=== PATIENT | male | born 1970 | race Caucasian/White ===

== ENCOUNTER 2016-06-21 03:59 | Emergency (ER) | payer MEDICAID ==
[~2016-06-21] VITALS: Ht 180.3 cm; Wt 74.8 kg
[2016-06-21] MEDS ORDERED: SODIUM CHLORIDE 0.9% 1,000 ML IVB ONE (06:38)
[2016-06-21] MEDS ORDERED: METOCLOPRAMIDE HCL 5MG/ml INJ 2ml VIAL IV ONE (06:45)
[2016-06-21] MEDS ORDERED: KETOROLAC TROMETH 30 MG/ML 1ML VIAL IV ONE (06:45)
[2016-06-21 07:05] LABS: Hematocrit 48.5 % (41.0-53.0); Hemoglobin 16.1 g/dL (13.5-17.5); Mean Corpuscular Hemoglobin 28.8 pg (28.0-32.0); Mean Corpuscular Hgb Conc. 33.3 g/dL (32.0-36.0); Mean Corpuscular Volume 86.7 fL (80.0-100.0); Mean Platelet Volume 7.3 fL (7.4-10.4); Platelet Count (auto) 412 10^3/uL (140-450); Red Cell Distribution Width 13.9 % (11.6-16.0); White Blood Cell 20.1 10^3/uL (4.4-10.8)
[2016-06-21 07:10] LABS: Metamyelocytes % 0; Myelocytes % 0; Promyelocytes % 0; Reactive Lymphocytes 0
[2016-06-21 07:34] LABS: Albumin 4.8 g/dL (3.4-5.0); BUN/Creatinine Ratio 18.8; Bilirubin, Total 0.7 mg/dL (0.2-1.0); Calcium 9.8 mg/dL (8.5-10.1); Magnesium 2.7 mg/dL (1.6-2.6); Potassium 3.7 mmol/L (3.5-5.1); Total Protein 8.2 g/dL (6.4-8.2)
[2016-06-21 08:17] VITALS: BP 123/78
[2016-06-21 09:27] LABS: Platelet Estimate Adequate
[2016-06-21 09:28] LABS: RBC Morphology Normal
[2016-06-21 10:49] LABS: Urine Bilirubin Negative (Negative); Urine Blood Negative /uL (Negative); Urine Color Yellow (Yellow); Urine Glucose Normal (Normal); Urine Ketone TRACE (Negative); Urine Mucus FEW (None Seen); Urine Nitrite Negative (Negative); Urine RBC 6 /hpf (0 - 3); Urine Urobilinogen Normal (Negative); Urine pH 6.5 (5.0-8.0)
== END 2016-06-21 11:27 | disposition home or self-care (01) ==
LOC: ER 04:00
DX: N20.1 Calculus of ureter (principal); Z87.442 Personal history of urinary calculi; F17.210 Nicotine dependence, cigarettes, uncomplicated; F12.10 Cannabis abuse, uncomplicated; F15.10 Other stimulant abuse, uncomplicated
CPT/HCPCS: 36415; 74176; 80053; 81001; 83690; 83735; 85007; 85027; 96361; 96374; 96375; 99285; J1885; J2765; J7030

== ENCOUNTER 2020-03-20 00:31 | Emergency (ER) | payer MEDICAID ==
[~2020-03-20] VITALS: Ht 180.3 cm; Wt 72.6 kg
[2020-03-20] MEDS ORDERED: IOHEXOL 300 MG/ML 100ML BOTTLE IJ ONE (00:54)
[2020-03-20] MEDS ORDERED: ONDANSETRON HCL 4 MG/2 ML VIAL ONE (01:03)
[2020-03-20] MEDS ORDERED: SODIUM CHLORIDE 0.9% 1,000 ML IV ONE (01:30)
[2020-03-20] MEDS ORDERED: ONDANSETRON HCL 4 MG/2 ML VIAL IV ONE ×2 (01:30→04:15)
[2020-03-20 01:31] LABS: Basophils # (auto) 0.1 10 ^3/uL (0-0.2); Basophils % (auto) 0.5 % (0.0-2.0); Eosinophils # (auto) 0.2 10 ^3/uL (0-0.8); Eosinophils % (auto) 1.4 % (0.0-7.0); Hematocrit 45.5 % (41.0-53.0); Hemoglobin 15.6 g/dL (13.5-17.5); Lymphocytes # (auto) 3.8 10 ^3/uL (0.4-5.4); Lymphocytes % (auto) 27.5 % (10.0-50.0); Mean Corpuscular Hemoglobin 29.5 pg (28.0-32.0); Mean Corpuscular Hgb Conc. 34.4 g/dL (32.0-36.0); Mean Corpuscular Volume 85.9 fL (80.0-100.0); Monocytes % (auto) 7.1 % (0.0-12.0); Neutrophils # (auto) 8.8 10 ^3/uL (1.6-8.6); Neutrophils % (auto) 63.5 % (37.0-80.0); Nucleated Red Blood Cells % 0.1 %; Platelet Count (auto) 418 10^3/uL (140-450); Red Cell Distribution Width 14.1 % (11.8-14.3); White Blood Cell 13.8 10^3/uL (4.4-10.8)
[2020-03-20 01:49] LABS: Albumin 4.2 g/dL (3.4-5.0); BUN/Creatinine Ratio 14.9; Calcium 9.6 mg/dL (8.5-10.1); Potassium 3.6 mmol/L (3.5-5.1)
[2020-03-20 01:52] LABS: Bilirubin, Total 0.3 mg/dL (0.2-1.0); Total Protein 7.5 g/dL (6.4-8.2)
[2020-03-20] MEDS ORDERED: MORPHINE SULFATE 4 MG/ML SYR/VIAL IV ONE (04:15)
[2020-03-20 06:59] VITALS: BP 109/74
== END 2020-03-20 09:50 | disposition home or self-care (01) ==
LOC: ER 00:31
DX: N20.1 Calculus of ureter (principal); F17.210 Nicotine dependence, cigarettes, uncomplicated
CPT/HCPCS: 36415; 74177; 80053; 83690; 85025; 93005; 96361; 96374; 96375; 96376; 99285; J2270; J2405; Q9967

== ENCOUNTER 2020-06-09 19:34 | Inpatient (IN) | payer MEDICAID ==
[~2020-06-09] VITALS: Ht 177.8 cm; Wt 72.9 kg
[2020-06-09] MEDS ORDERED: CLINDAMYCIN 900MG IV 50 ML IV ONE (20:00)
[2020-06-09 20:22] LABS: Basophils # (auto) 0.1 10 ^3/uL (0-0.2); Basophils % (auto) 0.4 % (0.0-2.0); Eosinophils # (auto) 0.1 10 ^3/uL (0-0.8); Eosinophils % (auto) 0.5 % (0.0-7.0); Hematocrit 42.8 % (41.0-53.0); Hemoglobin 14.4 g/dL (13.5-17.5); Lymphocytes # (auto) 1.6 10 ^3/uL (0.4-5.4); Lymphocytes % (auto) 7.9 % (10.0-50.0); Mean Corpuscular Hemoglobin 28.9 pg (28.0-32.0); Mean Corpuscular Hgb Conc. 33.6 g/dL (32.0-36.0); Mean Corpuscular Volume 86.1 fL (80.0-100.0); Monocytes # (auto) 1.4 10 ^3/uL (0-1.3); Monocytes % (auto) 6.6 % (0.0-12.0); Neutrophils # (auto) 17.5 10 ^3/uL (1.6-8.6); Neutrophils % (auto) 84.6 % (37.0-80.0); Red Blood Cells 4.98 10^6/uL (4.5-5.90); Red Cell Distribution Width 14.2 % (11.8-14.3); White Blood Cell 20.7 10^3/uL (4.4-10.8)
[2020-06-09] MEDS ORDERED: SODIUM CHLORIDE 0.9% 1,000 ML IV ONE (22:15)
[2020-06-09] MEDS ORDERED: ACETAMINOPHEN 325 MG TAB PO ONE (22:15)
[2020-06-09] MEDS ORDERED: VANCOMYCIN 1GM/250ML 250 ML IV ONE (22:45)
[2020-06-09 23:19] LABS: Albumin 3.7 g/dL (3.4-5.0); BUN/Creatinine Ratio 10.6; Calcium 8.8 mg/dL (8.5-10.1); Potassium 3.7 mmol/L (3.5-5.1)
[2020-06-09 23:21] LABS: Bilirubin, Total 0.7 mg/dL (0.2-1.0); Total Protein 7.4 g/dL (6.4-8.2)
[2020-06-10] VITALS (7 sets, daily range): BP systolic 141–162; BP diastolic 85–101
[2020-06-10] MEDS ORDERED: TEMAZEPAM 15 MG CAP PO PRN (01:00)
[2020-06-10] MEDS ORDERED: VANCOMYCIN PER PHARMACY 0 MG IV SCH (01:00)
[2020-06-10] MEDS ORDERED: ONDANSETRON HCL 4 MG/2 ML VIAL IV PRN (01:00)
[2020-06-10] MEDS ORDERED: cefTRIAXone 1GM/50ML D5W 50 ML IV ONE (01:00)
[2020-06-10] MEDS ORDERED: ACETAMINOPHEN 325 MG TAB PO PRN (01:00)
[2020-06-10] MEDS ORDERED: SODIUM CHLORIDE 0.9% 1,000 ML IV SCH (01:00)
[2020-06-10] MEDS: HYDROcodone-ACET 5/325MG TAB PO PRN ×3 (01:44→20:48)
[2020-06-10] MEDS: FAMOTIDINE 20 MG TAB PO SCH ×2 (09:20→20:47)
[2020-06-10] MEDS: cefTRIAXone 1GM/50ML D5W 50 ML IV SCH (09:21)
[2020-06-10] MEDS: VANCOMYCIN 750mg/250ml 250 ML IV SCH ×2 (10:20→16:48)
[2020-06-10] MEDS ORDERED: SODIUM CHLORIDE 0.9% 1,000 ML IV ONE (12:15)
[2020-06-10] MEDS: HYDROmorphone HCL 2 MG/ML VL IV PRN ×2 (13:05→18:55)
[2020-06-10] MEDS: SODIUM CHLORIDE 0.9% 1,000 ML IV SCH ×2 (15:24→18:22)
[2020-06-11] MEDS: HYDROmorphone HCL 2 MG/ML VL IV PRN ×3 (01:14→21:48)
[2020-06-11] MEDS: SODIUM CHLORIDE 0.9% 1,000 ML IV SCH ×4 (02:24→21:35)
[2020-06-11] MEDS: VANCOMYCIN 750mg/250ml 250 ML IV SCH ×3 (02:25→19:01)
[2020-06-11 05:00] VITALS: BP 125/72
[2020-06-11 07:59] LABS: Basophils # (auto) 0 10 ^3/uL (0-0.2); Basophils % (auto) 0.2 % (0.0-2.0); Eosinophils # (auto) 0.2 10 ^3/uL (0-0.8); Eosinophils % (auto) 1.1 % (0.0-7.0); Hematocrit 39.5 % (41.0-53.0); Hemoglobin 13.8 g/dL (13.5-17.5); Lymphocytes # (auto) 2.2 10 ^3/uL (0.4-5.4); Lymphocytes % (auto) 10.3 % (10.0-50.0); Mean Corpuscular Hemoglobin 29.9 pg (28.0-32.0); Mean Corpuscular Hgb Conc. 34.9 g/dL (32.0-36.0); Mean Corpuscular Volume 85.9 fL (80.0-100.0); Monocytes # (auto) 1.6 10 ^3/uL (0-1.3); Monocytes % (auto) 7.5 % (0.0-12.0); Neutrophils # (auto) 17.2 10 ^3/uL (1.6-8.6); Neutrophils % (auto) 80.9 % (37.0-80.0); White Blood Cell 21.2 10^3/uL (4.4-10.8)
[2020-06-11 08:00] LABS: Potassium 3.7 mmol/L (3.5-5.1)
[2020-06-11 08:06] LABS: Albumin 3.2 g/dL (3.4-5.0); BUN/Creatinine Ratio 9.8; Bilirubin, Total 0.5 mg/dL (0.2-1.0); Calcium 8.7 mg/dL (8.5-10.1); Total Protein 6.7 g/dL (6.4-8.2)
[2020-06-11] MEDS: cefTRIAXone 1GM/50ML D5W 50 ML IV SCH (08:42)
[2020-06-11] MEDS: HYDROcodone-ACET 5/325MG TAB PO PRN (08:42)
[2020-06-11 09:00] VITALS: BP 130/70
[2020-06-11 13:00] VITALS: BP 107/54
[2020-06-11] MEDS: FAMOTIDINE 20 MG TAB PO SCH ×2 (14:46→21:49)
[2020-06-11] MEDS: CLINDAMYCIN 300 MG IV SCH ×3 (14:47→21:48)
[2020-06-11 16:50] VITALS: BP 125/87
[2020-06-11 21:45] VITALS: BP 157/84
[2020-06-12] VITALS (7 sets, daily range): BP systolic 129–143; BP diastolic 76–85
[2020-06-12] MEDS: VANCOMYCIN 750mg/250ml 250 ML IV SCH ×3 (02:02→18:21)
[2020-06-12] MEDS: SODIUM CHLORIDE 0.9% 1,000 ML IV SCH ×3 (04:11→16:01)
[2020-06-12] MEDS: CLINDAMYCIN 300 MG IV SCH ×3 (05:42→22:00)
[2020-06-12 06:19] LABS: Basophils # (auto) 0 10 ^3/uL (0-0.2); Basophils % (auto) 0.1 % (0.0-2.0); Eosinophils # (auto) 0.2 10 ^3/uL (0-0.8); Eosinophils % (auto) 1.4 % (0.0-7.0); Hematocrit 40.8 % (41.0-53.0); Hemoglobin 13.8 g/dL (13.5-17.5); Lymphocytes # (auto) 1.8 10 ^3/uL (0.4-5.4); Lymphocytes % (auto) 11.2 % (10.0-50.0); Mean Corpuscular Hemoglobin 29.1 pg (28.0-32.0); Mean Corpuscular Hgb Conc. 33.7 g/dL (32.0-36.0); Mean Corpuscular Volume 86.1 fL (80.0-100.0); Monocytes % (auto) 5.9 % (0.0-12.0); Neutrophils # (auto) 13.4 10 ^3/uL (1.6-8.6); Neutrophils % (auto) 81.4 % (37.0-80.0); Red Blood Cells 4.74 10^6/uL (4.5-5.90); White Blood Cell 16.4 10^3/uL (4.4-10.8)
[2020-06-12] MEDS: cefTRIAXone 1GM/50ML D5W 50 ML IV SCH (09:08)
[2020-06-12] MEDS: FAMOTIDINE 20 MG TAB PO SCH ×2 (12:29→22:00)
[2020-06-12] MEDS: HYDROmorphone HCL 2 MG/ML VL IV PRN ×2 (16:01→23:56)
[2020-06-13] MEDS: SODIUM CHLORIDE 0.9% 1,000 ML IV SCH ×4 (00:15→20:46)
[2020-06-13] MEDS: VANCOMYCIN 750mg/250ml 250 ML IV SCH ×2 (01:38→10:45)
[2020-06-13 04:59] VITALS: BP 134/77
[2020-06-13] MEDS: CLINDAMYCIN 300 MG IV SCH ×3 (05:49→21:53)
[2020-06-13] MEDS: HYDROmorphone HCL 2 MG/ML VL IV PRN ×3 (06:02→21:58)
[2020-06-13 09:00] VITALS: BP 125/89
[2020-06-13] MEDS: FAMOTIDINE 20 MG TAB PO SCH ×2 (10:45→21:53)
[2020-06-13] MEDS: cefTRIAXone 1GM/50ML D5W 50 ML IV SCH (12:00)
[2020-06-13 13:24] VITALS: BP 149/83
[2020-06-13] MEDS: LINEZOLID 600MG/300ML 300 ML IV SCH (15:16)
[2020-06-13 16:54] VITALS: BP 138/80
[2020-06-13 21:04] VITALS: BP 128/70
[2020-06-14] MEDS: SODIUM CHLORIDE 0.9% 1,000 ML IV SCH ×3 (02:59→16:57)
[2020-06-14] MEDS: LINEZOLID 600MG/300ML 300 ML IV SCH ×2 (02:59→16:57)
[2020-06-14 05:12] VITALS: BP 134/84
[2020-06-14] MEDS: CLINDAMYCIN 300 MG IV SCH ×3 (05:15→21:46)
[2020-06-14] MEDS: HYDROmorphone HCL 2 MG/ML VL IV PRN ×3 (05:15→18:53)
[2020-06-14 06:08] LABS: Basophils # (auto) 0.1 10 ^3/uL (0-0.2); Basophils % (auto) 0.5 % (0.0-2.0); Eosinophils # (auto) 0.3 10 ^3/uL (0-0.8); Eosinophils % (auto) 3.2 % (0.0-7.0); Hematocrit 41.9 % (41.0-53.0); Hemoglobin 14.2 g/dL (13.5-17.5); Lymphocytes # (auto) 1.7 10 ^3/uL (0.4-5.4); Lymphocytes % (auto) 15.8 % (10.0-50.0); Mean Corpuscular Hgb Conc. 33.9 g/dL (32.0-36.0); Mean Corpuscular Volume 85.3 fL (80.0-100.0); Monocytes # (auto) 0.8 10 ^3/uL (0-1.3); Monocytes % (auto) 7.1 % (0.0-12.0); Neutrophils # (auto) 8.1 10 ^3/uL (1.6-8.6); Neutrophils % (auto) 73.4 % (37.0-80.0); Nucleated Red Blood Cells % 0.1 %; Red Blood Cells 4.91 10^6/uL (4.5-5.90); Red Cell Distribution Width 13.8 % (11.8-14.3)
[2020-06-14 06:26] LABS: Potassium 3.8 mmol/L (3.5-5.1)
[2020-06-14 06:33] LABS: Albumin 2.9 g/dL (3.4-5.0); BUN/Creatinine Ratio 16.5; Bilirubin, Total 0.1 mg/dL (0.2-1.0); Calcium 8.6 mg/dL (8.5-10.1); Total Protein 6.4 g/dL (6.4-8.2)
[2020-06-14 09:00] VITALS: BP 137/85
[2020-06-14] MEDS ORDERED: IOHEXOL 350 MG/ML 100ML IJ ONE (09:32)
[2020-06-14] MEDS: FAMOTIDINE 20 MG TAB PO SCH ×2 (11:24→21:46)
[2020-06-14 13:00] VITALS: BP 141/81
[2020-06-14 16:28] VITALS: BP 132/74
[2020-06-14] MEDS: HYDROcodone-ACET 5/325MG TAB PO PRN (21:21)
[2020-06-14 21:48] VITALS: BP 132/77
[2020-06-15] MEDS: SODIUM CHLORIDE 0.9% 1,000 ML IV SCH ×3 (01:12→12:15)
[2020-06-15] MEDS: LINEZOLID 600MG/300ML 300 ML IV SCH (02:24)
[2020-06-15] MEDS: HYDROmorphone HCL 2 MG/ML VL IV PRN (02:25)
[2020-06-15 05:00] VITALS: BP 123/72
[2020-06-15] MEDS: CLINDAMYCIN 300 MG IV SCH (05:35)
[2020-06-15 08:00] VITALS: BP 139/79
[2020-06-15 09:07] VITALS: BP 139/79
[2020-06-15] MEDS: FAMOTIDINE 20 MG TAB PO SCH (09:55)
[2020-06-15] MEDS ORDERED: DOXYCYCLINE 100 MG TAB/CAP PO SCH (10:00)
[2020-06-15] MEDS: HYDROcodone-ACET 5/325MG TAB PO PRN (12:28)
[2020-06-15 12:30] VITALS: BP 133/76
[2020-06-15 14:02] VITALS: BP 133/76
== END 2020-06-15 15:33 | disposition home or self-care (01) | DRG 720 ==
LOC: ER 19:35 → OVERFLOW 06-10 00:52 → CENTRAL 06-10 02:07
PROVIDERS: ADMIT Nurse Practitioner; ATTEND Family Medicine
DX: A41.9 Sepsis, unspecified organism (principal); E86.0 Dehydration; L03.211 Cellulitis of face; F12.10 Cannabis abuse, uncomplicated; F15.10 Other stimulant abuse, uncomplicated; F17.210 Nicotine dependence, cigarettes, uncomplicated; Z87.442 Personal history of urinary calculi; K02.9 Dental caries, unspecified; Z82.49 Family history of ischemic heart disease and other diseases of the circulatory system; Z82.3 Family history of stroke; Z71.6 Tobacco abuse counseling; Z20.822 Contact with and (suspected) exposure to COVID-19; B95.62 Methicillin resistant Staphylococcus aureus infection as the cause of diseases classified elsewhere; Z71.51 Drug abuse counseling and surveillance of drug abuser; R22.1 Localized swelling, mass and lump, neck
CPT/HCPCS: 36415; 70450; 70486; 70487; 70490; 80053; 80202; 83605; 85025; 87040; 87077; 87186; 87205; 87426; 96361; 96365; G0378; J0696; J3490

== ENCOUNTER 2021-06-26 17:30 | Inpatient (IN) | payer MEDICAID ==
[~2021-06-26] VITALS: Ht 180.3 cm; Wt 91.9 kg
[2021-06-26] MEDS ORDERED: IPRATROPIUM BROM 0.5 MG/2.5ML INH SOL NEB ONE (18:00)
[2021-06-26] MEDS ORDERED: ALBUTEROL SULF 2.5 MG/0.5ML(0.5%) NEB SOLN NEB ONE (18:00)
[2021-06-26] MEDS ORDERED: methylPREDNISolone SOD SUCC 125 MG/2 ML VL IV ONE (18:30)
[2021-06-26] MEDS ORDERED: methylPREDNISolone SOD SUCC 125 MG/2 ML VL ONE (18:30)
[2021-06-26] MEDS ORDERED: MAGNESIUM SULFATE 1GM/100ML 100 ML IV ONE (18:34)
[2021-06-26] MEDS ORDERED: LACTATED RINGER'S 1,000 ML IV ONE (19:00)
[2021-06-26 19:04] LABS: Hematocrit 48.1 % (41.0-53.0); Hemoglobin 16.1 g/dL (13.5-17.5); Mean Corpuscular Hemoglobin 29.1 pg (28.0-32.0); Mean Corpuscular Hgb Conc. 33.5 g/dL (32.0-36.0); Red Blood Cells 5.52 10^6/uL (4.5-5.90); Red Cell Distribution Width 14.4 % (11.8-14.3); White Blood Cell 21.8 10^3/uL (4.4-10.8)
[2021-06-26 19:08] LABS: Basophils % (manual) 0 (0.0-2.0); Blast Cells 0; Eosinophils % (manual) 0 (0-7); Metamyelocytes % 0; Myelocytes % 0; Promyelocytes % 0; Reactive Lymphocytes 0
[2021-06-26 19:26] LABS: Albumin 4.4 g/dL (3.4-5.0); BUN/Creatinine Ratio 9.2; Calcium 8.7 mg/dL (8.5-10.1); Magnesium 3.5 mg/dL (1.6-2.6); Potassium 4.5 mmol/L (3.5-5.1)
[2021-06-26 19:29] LABS: Bilirubin, Total 0.5 mg/dL (0.2-1.0)
[2021-06-26] MEDS: MAGNESIUM SULFATE 1GM/100ML 100 ML IV SCH ×2 (19:30→19:42)
[2021-06-26 19:35] VITALS: BP 123/85
[2021-06-26] MEDS ORDERED: ASPirin 81 mg TAB PO ONE (19:45)
[2021-06-26] MEDS ORDERED: NITROGLYCERIN 0.4 MG SL TAB SL ONE ×2 (19:45→20:45)
[2021-06-26 19:51] LABS: INR 1.05 (0.9-1.15); Partial Thromboplastin Time 27.7 sec (23.6-33.0)
[2021-06-26] MEDS ORDERED: cefTRIAXone 1GM/50ML D5W 50 ML IV ONE (21:15)
[2021-06-26] MEDS ORDERED: AZITHROMYCIN 500MG/ 250ML 250 ML IV ONE (21:15)
[2021-06-26] MEDS ORDERED: SODIUM CHLORIDE 0.9% 1,000 ML IV ONE (21:15)
[2021-06-26 21:47] LABS: Band Neutrophils % (manual) 9; Lymphocytes % (manual) 11 (10.0-50.0); Monocytes % (manual) 9 (0-12)
[2021-06-26] MEDS ORDERED: MORPHINE SULFATE INJ 2 MG/ml SYRG IV ONE (23:30)
[2021-06-27] VITALS (18 sets, daily range): BP systolic 98–145; BP diastolic 55–92
[2021-06-27] MEDS ORDERED: MORPHINE SULFATE INJ 2 MG/ml SYRG IV ONE (01:00)
[2021-06-27 02:09] LABS: Lactic Acid w/Reflex 4.2 mmol/L (0.4-2.0)
[2021-06-27 02:12] LABS: Lactic Acid w/Reflex 3.6 mmol/L (0.4-2.0)
[2021-06-27] MEDS ORDERED: ONDANSETRON HCL 4 MG/2 ML VIAL IV PRN (02:15)
[2021-06-27] MEDS ORDERED: ACETAMINOPHEN 325 MG TAB PO PRN (02:15)
[2021-06-27] MEDS ORDERED: ENOXAPARIN SOD 100 MG/1 ML SYRINGE SC ONE (02:15)
[2021-06-27] MEDS ORDERED: NITROGLYCERIN 0.4 MG SL TAB SL PRN (02:15)
[2021-06-27 05:21] LABS: BUN/Creatinine Ratio 10.8; Calcium 8.8 mg/dL (8.5-10.1); Potassium 4.5 mmol/L (3.5-5.1)
[2021-06-27] MEDS ORDERED: SODIUM CHLORIDE 0.9% 500 ML IV ONE (07:00)
[2021-06-27] MEDS: ENOXAPARIN SOD 30 MG/0.3 ML SYRINGE SC SCH (09:34)
[2021-06-27] MEDS: PANTOPRAZOLE 40 MG TAB PO SCH (09:35)
[2021-06-27] MEDS: HYDROcodone-ACET 5/325MG TAB PO PRN ×2 (09:44→21:42)
[2021-06-27] MEDS ORDERED: methylPREDNISolone SOD SUCC 125 MG/2 ML VL IV SCH (10:00)
[2021-06-27] MEDS: MORPHINE SULFATE INJ 2 MG/ml SYRG IV PRN ×2 (11:57→15:56)
[2021-06-27] MEDS ORDERED: IPRATROPIUM BROM 0.5 MG/2.5ML INH SOL NEB PRN (16:00)
[2021-06-27 16:02] LABS: Amphetamine Screen, Urine POSITIVE (NEGATIVE); Barbiturate Scree,Urine NEGATIVE (NEGATIVE); Benzodiazephine Screen, Urine NEGATIVE (NEGATIVE); Cannabinoid Screen, Urine NEGATIVE (NEGATIVE); Cocaine Screen, Urine NEGATIVE (NEGATIVE)
[2021-06-27 16:10] LABS: Opiate Scree,Urine NEGATIVE (NEGATIVE); Phencyclidine Screen, Urine NEGATIVE (NEGATIVE)
[2021-06-27] MEDS: SODIUM CHLORIDE 0.9% 1,000 ML IV SCH (16:19)
[2021-06-27 16:35] LABS: Urine Bacteria NONE SEEN /hpf (None Seen); Urine Blood 1+ /uL (Negative); Urine Budding Yeast OCCASIONAL /hpf (None Seen); Urine Hyaline Cast MOD /lpf (0 - 2); Urine Mucus FEW (None Seen); Urine Specific Gravity 1.027 (1.001-1.035); Urine WBC 3 /hpf (0 - 3)
[2021-06-27] MEDS: IPRATROPIUM BROM 0.5 MG/2.5ML INH SOL NEB SCH ×2 (18:34→22:12)
[2021-06-27] MEDS: LEVALBUTEROL HCL 1.25 MG/3 ML NEB NEB SCH ×2 (18:34→22:12)
[2021-06-27] MEDS: methylPREDNISolone SOD SUCC 125 MG/2 ML VL IV SCH (21:29)
[2021-06-27] MEDS: cefTRIAXone 1GM/50ML D5W 50 ML IV SCH (21:29)
[2021-06-27] MEDS ORDERED: HYDROcodone-ACET 5/325MG TAB PO ONE (22:45)
[2021-06-27] MEDS: AZITHROMYCIN 500MG/ 250ML 250 ML IV SCH (23:23)
[2021-06-28] VITALS (46 sets, daily range): BP systolic 78–167; BP diastolic 41–96
[2021-06-28] MEDS: IPRATROPIUM BROM 0.5 MG/2.5ML INH SOL NEB SCH ×6 (02:10→22:26)
[2021-06-28] MEDS: LEVALBUTEROL HCL 1.25 MG/3 ML NEB NEB SCH ×6 (02:10→22:26)
[2021-06-28 05:29] LABS: Basophils # (auto) 0 10 ^3/uL (0-0.2); Basophils % (auto) 0.2 % (0.0-2.0); Eosinophils # (auto) 0 10 ^3/uL (0-0.8); Hemoglobin 12.7 g/dL (13.5-17.5); Lymphocytes # (auto) 1.3 10 ^3/uL (0.4-5.4); Lymphocytes % (auto) 6.1 % (10.0-50.0); Mean Corpuscular Hemoglobin 29.3 pg (28.0-32.0); Mean Corpuscular Hgb Conc. 34.4 g/dL (32.0-36.0); Mean Corpuscular Volume 85.1 fL (80.0-100.0); Monocytes # (auto) 1.2 10 ^3/uL (0-1.3); Monocytes % (auto) 5.7 % (0.0-12.0); Red Blood Cells 4.35 10^6/uL (4.5-5.90); Red Cell Distribution Width 14.5 % (11.8-14.3); White Blood Cell 20.5 10^3/uL (4.4-10.8)
[2021-06-28 05:47] LABS: Potassium 4.8 mmol/L (3.5-5.1)
[2021-06-28 05:49] LABS: Lactic Acid w/Reflex 2.5 mmol/L (0.4-2.0)
[2021-06-28 05:55] LABS: Albumin 2.7 g/dL (3.4-5.0); BUN/Creatinine Ratio 45.2; Bilirubin, Total 0.4 mg/dL (0.2-1.0); Calcium 8.8 mg/dL (8.5-10.1); Magnesium 2.4 mg/dL (1.6-2.6)
[2021-06-28] MEDS: SODIUM CHLORIDE 0.9% 1,000 ML IV SCH (06:09)
[2021-06-28] MEDS: ENOXAPARIN SOD 30 MG/0.3 ML SYRINGE SC SCH (09:19)
[2021-06-28] MEDS: methylPREDNISolone SOD SUCC 125 MG/2 ML VL IV SCH ×2 (09:19→22:12)
[2021-06-28] MEDS: PANTOPRAZOLE 40 MG TAB PO SCH (09:19)
[2021-06-28] MEDS: HYDROcodone-ACET 5/325MG TAB PO PRN (10:35)
[2021-06-28] MEDS ORDERED: HYDROmorphone HCL 2 MG/ML VL/or syr IV ONE (11:30)
[2021-06-28] MEDS ORDERED: LORazepam 2MG/ML-1ML VIAL IV ONE (11:30)
[2021-06-28] MEDS ORDERED: CHOLECALCIFEROL (VITD3) 2,000 UNIT CAP/TAB PO ONE (14:45)
[2021-06-28] MEDS ORDERED: LORazepam 2MG/ML-1ML VIAL IV PRN (14:45)
[2021-06-28] MEDS ORDERED: HYDROmorphone HCL 2 MG/ML VL/or syr IV PRN (14:45)
[2021-06-28 15:16] LABS: Amylase 160 U/L (25-115); Lipase 31 U/L (73-393)
[2021-06-28] MEDS ORDERED: ETOMIDATE (2MG/ML) 20ML VIAL IV ONE (18:34)
[2021-06-28] MEDS ORDERED: SUCCINYLCHOLINE CHLORIDE 20 MG/ML 10ML VIAL IV ONE (18:35)
[2021-06-28] MEDS ORDERED: PROPOFOL 100 ML IV ONE (18:35)
[2021-06-28] MEDS ORDERED: fentaNYL Drip 2500mCg/250mlNS 250 ML IV ONE (19:01)
[2021-06-28] MEDS: fentaNYL Drip 2500mCg/250mlNS 250 ML IV SCH (19:51)
[2021-06-28] MEDS: NOREPINEPHRINE 8 MG/250ML KIT 250 ML IV SCH (19:52)
[2021-06-28] MEDS: PROPOFOL 100 ML IV SCH ×2 (19:52→22:28)
[2021-06-28] MEDS: MIDAZOLAM DRIP 50 mg/50mL 50 ML IV SCH (21:03)
[2021-06-28] MEDS: cefTRIAXone 1GM/50ML D5W 50 ML IV SCH (21:18)
[2021-06-28] MEDS: AZITHROMYCIN 500MG/ 250ML 250 ML IV SCH (22:13)
[2021-06-28] MEDS: PANTOPRAZOLE 40 MG/10 ML VIAL INJ IV SCH (22:13)
[2021-06-29] VITALS (105 sets, daily range): BP systolic 86–129; BP diastolic 48–87
[2021-06-29] MEDS: MIDAZOLAM DRIP 50 mg/50mL 50 ML IV SCH ×3 (00:11→22:05)
[2021-06-29] MEDS: PROPOFOL 100 ML IV SCH ×4 (00:47→17:31)
[2021-06-29] MEDS: NOREPINEPHRINE 8 MG/250ML KIT 250 ML IV SCH ×2 (02:20→17:34)
[2021-06-29] MEDS: IPRATROPIUM BROM 0.5 MG/2.5ML INH SOL NEB SCH ×4 (02:42→21:46)
[2021-06-29] MEDS: LEVALBUTEROL HCL 1.25 MG/3 ML NEB NEB SCH ×4 (02:42→21:46)
[2021-06-29] MEDS: SODIUM CHLORIDE 0.9% 1,000 ML IV SCH ×2 (04:05→13:59)
[2021-06-29 05:02] LABS: Hematocrit 33.4 % (41.0-53.0); Hemoglobin 11.3 g/dL (13.5-17.5); Mean Corpuscular Hemoglobin 29.2 pg (28.0-32.0); Mean Corpuscular Hgb Conc. 33.7 g/dL (32.0-36.0); Mean Corpuscular Volume 86.6 fL (80.0-100.0); Red Blood Cells 3.86 10^6/uL (4.5-5.90); Red Cell Distribution Width 14.7 % (11.8-14.3); White Blood Cell 26.4 10^3/uL (4.4-10.8)
[2021-06-29 05:21] LABS: BUN/Creatinine Ratio 26.2; Potassium 5.3 mmol/L (3.5-5.1)
[2021-06-29 05:23] LABS: Lactic Acid w/Reflex 4.6 mmol/L (0.4-2.0)
[2021-06-29 05:26] LABS: Basophils % (manual) 0 (0.0-2.0); Blast Cells 0; Eosinophils % (manual) 0 (0-7); Myelocytes % 0; Promyelocytes % 0; Reactive Lymphocytes 0
[2021-06-29] MEDS ORDERED: PROPOFOL 100 ML IV ONE (08:11)
[2021-06-29] MEDS: fentaNYL Drip 2500mCg/250mlNS 250 ML IV SCH ×2 (08:15→17:32)
[2021-06-29 08:57] LABS: Band Neutrophils % (manual) 17; Lymphocytes % (manual) 4 (10.0-50.0); Metamyelocytes % 1; Monocytes % (manual) 6 (0-12)
[2021-06-29 09:41] LABS: INR 1.06 (0.9-1.15); Partial Thromboplastin Time 44.1 sec (23.6-33.0)
[2021-06-29] MEDS: methylPREDNISolone SOD SUCC 125 MG/2 ML VL IV SCH ×2 (11:29→22:00)
[2021-06-29] MEDS: PANTOPRAZOLE 40 MG/10 ML VIAL INJ IV SCH ×2 (11:29→22:00)
[2021-06-29] MEDS ORDERED: FUROSEMIDE 20 MG/2 ML VIAL IV ONE (11:30)
[2021-06-29] MEDS ORDERED: SODIUM CHLORIDE 0.9% 1,000 ML IV ONE (11:30)
[2021-06-29] MEDS: ENOXAPARIN SOD 30 MG/0.3 ML SYRINGE SC SCH (11:34)
[2021-06-29] MEDS: CHOLECALCIFEROL (VITD3) 2,000 UNIT CAP/TAB PO SCH (11:34)
[2021-06-29] MEDS: SODIUM ZIRCONIUM CYCL 10 GM PAK GT SCH ×2 (16:30→22:00)
[2021-06-29] MEDS: PIPERACILLIN-TAZOB 2.25GM 50 ML IV SCH (17:35)
[2021-06-30] VITALS (92 sets, daily range): BP systolic 99–140; BP diastolic 53–81
[2021-06-30] MEDS: LEVALBUTEROL HCL 1.25 MG/3 ML NEB NEB SCH ×6 (02:49→22:51)
[2021-06-30] MEDS: IPRATROPIUM BROM 0.5 MG/2.5ML INH SOL NEB SCH ×6 (02:50→22:51)
[2021-06-30 05:21] LABS: Basophils # (auto) 0 10 ^3/uL (0-0.2); Basophils % (auto) 0.1 % (0.0-2.0); Eosinophils # (auto) 0 10 ^3/uL (0-0.8); Hematocrit 28.3 % (41.0-53.0); Hemoglobin 9.5 g/dL (13.5-17.5); Lymphocytes # (auto) 0.5 10 ^3/uL (0.4-5.4); Lymphocytes % (auto) 2.8 % (10.0-50.0); Mean Corpuscular Hemoglobin 29.2 pg (28.0-32.0); Mean Corpuscular Hgb Conc. 33.7 g/dL (32.0-36.0); Mean Corpuscular Volume 86.7 fL (80.0-100.0); Monocytes # (auto) 1.3 10 ^3/uL (0-1.3); Monocytes % (auto) 7.3 % (0.0-12.0); Neutrophils # (auto) 15.8 10 ^3/uL (1.6-8.6); Neutrophils % (auto) 89.8 % (37.0-80.0); Nucleated Red Blood Cells % 0.1 %; Red Blood Cells 3.26 10^6/uL (4.5-5.90); Red Cell Distribution Width 14.8 % (11.8-14.3); White Blood Cell 17.6 10^3/uL (4.4-10.8)
[2021-06-30 05:41] LABS: Lactic Acid w/Reflex 2.1 mmol/L (0.4-2.0)
[2021-06-30 05:52] LABS: Albumin 1.9 g/dL (3.4-5.0); BUN/Creatinine Ratio 24.6; Calcium 8.5 mg/dL (8.5-10.1); Magnesium 3.2 mg/dL (1.6-2.6); Potassium 4.5 mmol/L (3.5-5.1)
[2021-06-30 05:55] LABS: Bilirubin, Total 0.2 mg/dL (0.2-1.0); Total Protein 5.8 g/dL (6.4-8.2)
[2021-06-30] MEDS: PIPERACILLIN-TAZOB 2.25GM 50 ML IV SCH ×3 (06:00→13:30)
[2021-06-30] MEDS: SODIUM ZIRCONIUM CYCL 10 GM PAK GT SCH ×3 (06:00→21:59)
[2021-06-30] MEDS: fentaNYL Drip 2500mCg/250mlNS 250 ML IV SCH (09:05)
[2021-06-30] MEDS: CHOLECALCIFEROL (VITD3) 2,000 UNIT CAP/TAB PO SCH (09:32)
[2021-06-30] MEDS: methylPREDNISolone SOD SUCC 125 MG/2 ML VL IV SCH ×2 (09:32→21:59)
[2021-06-30] MEDS: PANTOPRAZOLE 40 MG/10 ML VIAL INJ IV SCH ×2 (09:33→21:59)
[2021-06-30] MEDS: ENOXAPARIN SOD 30 MG/0.3 ML SYRINGE SC SCH (09:33)
[2021-06-30] MEDS: MIDAZOLAM DRIP 50 mg/50mL 50 ML IV SCH ×2 (09:34→13:30)
[2021-06-30] MEDS: SODIUM CHLORIDE 0.9% 1,000 ML IV SCH (10:16)
[2021-06-30] MEDS: PIPERACILLIN-TAZOB 3.375GM 100 ML IV SCH ×2 (17:29→23:46)
[2021-06-30] MEDS: NOREPINEPHRINE 8 MG/250ML KIT 250 ML IV SCH (19:00)
[2021-07-01] VITALS (100 sets, daily range): BP systolic 108–160; BP diastolic 62–98
[2021-07-01] MEDS: MIDAZOLAM DRIP 50 mg/50mL 50 ML IV SCH ×2 (01:42→19:47)
[2021-07-01] MEDS: LEVALBUTEROL HCL 1.25 MG/3 ML NEB NEB SCH ×6 (02:12→22:16)
[2021-07-01] MEDS: IPRATROPIUM BROM 0.5 MG/2.5ML INH SOL NEB SCH ×6 (02:12→22:16)
[2021-07-01] MEDS: SODIUM CHLORIDE 0.9% 1,000 ML IV SCH ×2 (03:20→19:43)
[2021-07-01 05:19] LABS: Hematocrit 27.2 % (41.0-53.0); Hemoglobin 9.3 g/dL (13.5-17.5); Mean Corpuscular Hemoglobin 29.4 pg (28.0-32.0); Mean Corpuscular Volume 86.5 fL (80.0-100.0); Red Blood Cells 3.15 10^6/uL (4.5-5.90); Red Cell Distribution Width 15.2 % (11.8-14.3); White Blood Cell 16.7 10^3/uL (4.4-10.8)
[2021-07-01] MEDS: PIPERACILLIN-TAZOB 3.375GM 100 ML IV SCH ×4 (05:34→23:41)
[2021-07-01 05:37] LABS: Basophils % (manual) 0 (0.0-2.0); Blast Cells 0; Myelocytes % 0; Promyelocytes % 0; Reactive Lymphocytes 0
[2021-07-01 05:38] LABS: BUN/Creatinine Ratio 26.8; Calcium 8.6 mg/dL (8.5-10.1); Potassium 4.5 mmol/L (3.5-5.1)
[2021-07-01] MEDS: SODIUM ZIRCONIUM CYCL 10 GM PAK GT SCH (06:00)
[2021-07-01 06:46] LABS: Band Neutrophils % (manual) 2; Eosinophils % (manual) 1 (0-7); Lymphocytes % (manual) 4 (10.0-50.0); Metamyelocytes % 2; Monocytes % (manual) 9 (0-12)
[2021-07-01] MEDS: methylPREDNISolone SOD SUCC 125 MG/2 ML VL IV SCH ×2 (10:00→23:43)
[2021-07-01] MEDS: PANTOPRAZOLE 40 MG/10 ML VIAL INJ IV SCH ×2 (10:00→23:39)
[2021-07-01] MEDS: CHOLECALCIFEROL (VITD3) 2,000 UNIT CAP/TAB PO SCH (10:01)
[2021-07-01] MEDS: ENOXAPARIN SOD 30 MG/0.3 ML SYRINGE SC SCH (10:01)
[2021-07-01] MEDS: PROPOFOL 100 ML IV SCH ×2 (13:28→20:24)
[2021-07-01] MEDS: NOREPINEPHRINE 8 MG/250ML KIT 250 ML IV SCH (19:00)
[2021-07-01] MEDS: fentaNYL Drip 2500mCg/250mlNS 250 ML IV SCH (23:48)
[2021-07-02] VITALS (93 sets, daily range): BP systolic 105–152; BP diastolic 65–92
[2021-07-02] MEDS: IPRATROPIUM BROM 0.5 MG/2.5ML INH SOL NEB SCH ×6 (02:24→22:08)
[2021-07-02] MEDS: LEVALBUTEROL HCL 1.25 MG/3 ML NEB NEB SCH ×6 (02:24→22:08)
[2021-07-02 04:28] LABS: Mean Corpuscular Volume 86.2 fL (80.0-100.0)
[2021-07-02 04:36] LABS: Hematocrit 26.5 % (41.0-53.0); Mean Corpuscular Hemoglobin 29.2 pg (28.0-32.0); Mean Corpuscular Hgb Conc. 33.8 g/dL (32.0-36.0); Red Blood Cells 3.07 10^6/uL (4.5-5.90); Red Cell Distribution Width 15.1 % (11.8-14.3); White Blood Cell 16.4 10^3/uL (4.4-10.8)
[2021-07-02 04:49] LABS: BUN/Creatinine Ratio 38.6; Calcium 8.4 mg/dL (8.5-10.1); Magnesium 3.2 mg/dL (1.6-2.6); Potassium 4.2 mmol/L (3.5-5.1)
[2021-07-02 04:50] LABS: Basophils % (manual) 0 (0.0-2.0); Blast Cells 0; Eosinophils % (manual) 0 (0-7); Metamyelocytes % 0; Promyelocytes % 0; Reactive Lymphocytes 0
[2021-07-02] MEDS: PROPOFOL 100 ML IV SCH ×4 (05:03→17:49)
[2021-07-02] MEDS: PIPERACILLIN-TAZOB 3.375GM 100 ML IV SCH ×3 (05:42→17:48)
[2021-07-02 05:44] LABS: Band Neutrophils % (manual) 2; Lymphocytes % (manual) 8 (10.0-50.0); Monocytes % (manual) 12 (0-12); Myelocytes % 2
[2021-07-02] MEDS: CHOLECALCIFEROL (VITD3) 2,000 UNIT CAP/TAB PO SCH (08:29)
[2021-07-02] MEDS: PANTOPRAZOLE 40 MG/10 ML VIAL INJ IV SCH ×2 (08:30→21:43)
[2021-07-02] MEDS: methylPREDNISolone SOD SUCC 125 MG/2 ML VL IV SCH ×2 (08:30→21:43)
[2021-07-02] MEDS: ENOXAPARIN SOD 30 MG/0.3 ML SYRINGE SC SCH (11:14)
[2021-07-02] MEDS ORDERED: Jevity 1.2 Cal/Fiber 1 Liter GT SCH (11:15)
[2021-07-02] MEDS: SOD CHL 0.45% 1,000 ML IV SCH (11:15)
[2021-07-02] MEDS: fentaNYL Drip 2500mCg/250mlNS 250 ML IV SCH ×2 (17:49→19:15)
[2021-07-02] MEDS ORDERED: IOHEXOL 300 MG/ML 100ML BOTTLE IJ ONE (20:42)
[2021-07-03] VITALS (99 sets, daily range): BP systolic 93–133; BP diastolic 55–80
[2021-07-03] MEDS: LEVALBUTEROL HCL 1.25 MG/3 ML NEB NEB SCH ×6 (02:15→22:02)
[2021-07-03] MEDS: IPRATROPIUM BROM 0.5 MG/2.5ML INH SOL NEB SCH ×6 (02:15→22:02)
[2021-07-03] MEDS: PROPOFOL 100 ML IV SCH ×4 (02:22→22:22)
[2021-07-03] MEDS: MIDAZOLAM DRIP 50 mg/50mL 50 ML IV SCH ×2 (02:27→12:09)
[2021-07-03] MEDS: fentaNYL Drip 2500mCg/250mlNS 250 ML IV SCH (02:34)
[2021-07-03 03:43] LABS: Hematocrit 27.8 % (41.0-53.0); Hemoglobin 9.1 g/dL (13.5-17.5); Mean Corpuscular Hemoglobin 28.1 pg (28.0-32.0); Mean Corpuscular Hgb Conc. 32.6 g/dL (32.0-36.0); Red Blood Cells 3.23 10^6/uL (4.5-5.90); Red Cell Distribution Width 15.1 % (11.8-14.3); White Blood Cell 18.9 10^3/uL (4.4-10.8)
[2021-07-03 03:59] LABS: Band Neutrophils % (manual) 0; Basophils % (manual) 0 (0.0-2.0); Blast Cells 0; Eosinophils % (manual) 0 (0-7); Promyelocytes % 0; Reactive Lymphocytes 0
[2021-07-03 04:03] LABS: BUN/Creatinine Ratio 42.4; Calcium 8.2 mg/dL (8.5-10.1); Potassium 4.6 mmol/L (3.5-5.1)
[2021-07-03 04:16] LABS: Lymphocytes % (manual) 8 (10.0-50.0); Metamyelocytes % 1; Monocytes % (manual) 11 (0-12); Myelocytes % 1
[2021-07-03] MEDS: SOD CHL 0.45% 1,000 ML IV SCH ×2 (04:30→22:22)
[2021-07-03] MEDS: PIPERACILLIN-TAZOB 3.375GM 100 ML IV SCH ×4 (05:49→17:52)
[2021-07-03] MEDS: PANTOPRAZOLE 40 MG/10 ML VIAL INJ IV SCH ×2 (09:58→22:20)
[2021-07-03] MEDS: CHOLECALCIFEROL (VITD3) 2,000 UNIT CAP/TAB PO SCH (09:58)
[2021-07-03] MEDS: ENOXAPARIN SOD 30 MG/0.3 ML SYRINGE SC SCH (09:58)
[2021-07-03] MEDS: methylPREDNISolone SOD SUCC 125 MG/2 ML VL IV SCH ×2 (10:00→22:21)
[2021-07-03] MEDS ORDERED: ACETAMINOPHEN 650 MG RECT SUPP PR PRN (11:30)
[2021-07-03] MEDS ORDERED: FREE WATER GT SCH (12:00)
[2021-07-04] VITALS (101 sets, daily range): BP systolic 102–151; BP diastolic 53–85
[2021-07-04] MEDS: PIPERACILLIN-TAZOB 3.375GM 100 ML IV SCH ×5 (00:50→23:25)
[2021-07-04] MEDS: fentaNYL Drip 2500mCg/250mlNS 250 ML IV SCH ×2 (00:54→14:19)
[2021-07-04] MEDS: IPRATROPIUM BROM 0.5 MG/2.5ML INH SOL NEB SCH ×6 (02:05→23:04)
[2021-07-04] MEDS: LEVALBUTEROL HCL 1.25 MG/3 ML NEB NEB SCH ×6 (02:05→23:04)
[2021-07-04 04:19] LABS: BUN/Creatinine Ratio 44.8; Calcium 8.3 mg/dL (8.5-10.1)
[2021-07-04 04:53] LABS: Potassium 5.6 mmol/L (3.5-5.1)
[2021-07-04] MEDS: PROPOFOL 100 ML IV SCH ×5 (05:24→23:26)
[2021-07-04] MEDS: MIDAZOLAM DRIP 50 mg/50mL 50 ML IV SCH (05:28)
[2021-07-04] MEDS: ENOXAPARIN SOD 30 MG/0.3 ML SYRINGE SC SCH (09:21)
[2021-07-04] MEDS: CHOLECALCIFEROL (VITD3) 2,000 UNIT CAP/TAB PO SCH (09:22)
[2021-07-04] MEDS: PANTOPRAZOLE 40 MG/10 ML VIAL INJ IV SCH ×2 (09:55→22:16)
[2021-07-04] MEDS: SOD CHL 0.45% 1,000 ML IV SCH (09:56)
[2021-07-04] MEDS: methylPREDNISolone SOD SUCC 125 MG/2 ML VL IV SCH ×2 (09:56→22:16)
[2021-07-04] MEDS ORDERED: SODIUM ZIRCONIUM CYCL 10 GM PAK PO ONE (10:45)
[2021-07-04 12:26] LABS: INR 1.2 (0.9-1.15); Partial Thromboplastin Time 30.3 sec (23.6-33.0)
[2021-07-04] MEDS ORDERED: TPN PER PHARMACY 0 ML IV SCH (18:30)
[2021-07-04] MEDS: SODIUM CHLOR 0.9% PF (SALINE LOCK) 10ML VIAL/SYR IV SCH (22:16)
[2021-07-04] MEDS: AMINO ACID INFUSION IN D10W 1,000 ML IV NR (22:21)
[2021-07-04 22:22] LABS: % Iron Saturation 41.2 % (20-55)
[2021-07-05] VITALS (100 sets, daily range): BP systolic 126–171; BP diastolic 46–82
[2021-07-05] MEDS: IPRATROPIUM BROM 0.5 MG/2.5ML INH SOL NEB SCH ×6 (02:52→22:57)
[2021-07-05] MEDS: LEVALBUTEROL HCL 1.25 MG/3 ML NEB NEB SCH ×6 (02:52→22:57)
[2021-07-05 04:30] LABS: Hematocrit 27.2 % (41.0-53.0); Hemoglobin 9.2 g/dL (13.5-17.5); Mean Corpuscular Hemoglobin 29.2 pg (28.0-32.0); Mean Corpuscular Hgb Conc. 33.8 g/dL (32.0-36.0); Mean Corpuscular Volume 86.6 fL (80.0-100.0); Red Blood Cells 3.14 10^6/uL (4.5-5.90); Red Cell Distribution Width 15.5 % (11.8-14.3)
[2021-07-05 04:45] LABS: INR 1.19 (0.9-1.15)
[2021-07-05 04:53] LABS: Potassium 5.5 mmol/L (3.5-5.1)
[2021-07-05 04:54] LABS: Phosphorus 4.4 mg/dL (2.5-4.90)
[2021-07-05] MEDS: MIDAZOLAM DRIP 50 mg/50mL 50 ML IV SCH ×2 (04:59→17:11)
[2021-07-05 05:00] LABS: Albumin 1.7 g/dL (3.4-5.0); BUN/Creatinine Ratio 45.5; Bilirubin, Total 0.3 mg/dL (0.2-1.0); Calcium 8.2 mg/dL (8.5-10.1); Magnesium 2.8 mg/dL (1.6-2.6); Total Protein 6.2 g/dL (6.4-8.2)
[2021-07-05] MEDS: PIPERACILLIN-TAZOB 3.375GM 100 ML IV SCH (05:00)
[2021-07-05] MEDS: fentaNYL Drip 2500mCg/250mlNS 250 ML IV SCH ×2 (05:00→22:20)
[2021-07-05] MEDS: PROPOFOL 100 ML IV SCH ×5 (05:06→22:17)
[2021-07-05 05:10] LABS: White Blood Cell 32.3 10^3/uL (4.4-10.8)
[2021-07-05 05:12] LABS: Basophils % (manual) 0 (0.0-2.0); Blast Cells 0; Eosinophils % (manual) 0 (0-7); Promyelocytes % 0; Reactive Lymphocytes 0
[2021-07-05 07:47] LABS: Band Neutrophils % (manual) 3; Lymphocytes % (manual) 9 (10.0-50.0); Metamyelocytes % 3; Monocytes % (manual) 2 (0-12); Myelocytes % 3
[2021-07-05] MEDS ORDERED: DEXTROSE (50%) 50ML SYRG IV SCH (08:30)
[2021-07-05] MEDS: methylPREDNISolone SOD SUCC 125 MG/2 ML VL IV SCH (09:51)
[2021-07-05] MEDS: PANTOPRAZOLE 40 MG/10 ML VIAL INJ IV SCH ×2 (09:51→22:17)
[2021-07-05] MEDS: SODIUM CHLOR 0.9% PF (SALINE LOCK) 10ML VIAL/SYR IV SCH ×2 (09:51→22:17)
[2021-07-05] MEDS: ENOXAPARIN SOD 30 MG/0.3 ML SYRINGE SC SCH (09:52)
[2021-07-05] MEDS: CHOLECALCIFEROL (VITD3) 2,000 UNIT CAP/TAB PO SCH (09:53)
[2021-07-05] MEDS ORDERED: VANCOMYCIN PER PHARMACY 0 MG IV SCH (11:30)
[2021-07-05] MEDS: InsuLIN REG 1unit/0.01ml Soln (100units/ml) SC SCH ×2 (12:00→17:43)
[2021-07-05] MEDS: ACCU-CHEK COMFORT CURVE STRIP VI SCH ×2 (12:02→17:43)
[2021-07-05] MEDS: SOD CHL 0.45% 1,000 ML IV SCH (12:03)
[2021-07-05] MEDS: BUMETANIDE 1mg/4ml VIAL (0.25mg/ml) IV SCH (13:57)
[2021-07-05] MEDS: VANCOMYCIN 1GM/250ML 250 ML IV SCH (13:57)
[2021-07-05] MEDS: MEROPENEM 1GM IVPB 100 ML IV SCH ×2 (13:58→22:16)
[2021-07-05] MEDS ORDERED: SODIUM ZIRCONIUM CYCL 10 GM PAK PO SCH (14:00)
[2021-07-05] MEDS ORDERED: TPN PER PHARMACY IV NR ×5 (20:00)
[2021-07-05] MEDS: AMINO ACID INFUSION IN D10W 1,000 ML IV NR (22:17)
[2021-07-06] VITALS (111 sets, daily range): BP systolic 84–210; BP diastolic 26–78
[2021-07-06] MEDS: SOD CHL 0.45% 1,000 ML IV SCH ×2 (01:48→16:06)
[2021-07-06] MEDS: ACCU-CHEK COMFORT CURVE STRIP VI SCH ×5 (01:55→23:28)
[2021-07-06] MEDS: PROPOFOL 100 ML IV SCH ×6 (01:56→21:27)
[2021-07-06] MEDS: VANCOMYCIN 1GM/250ML 250 ML IV SCH ×2 (01:56→13:58)
[2021-07-06] MEDS: MIDAZOLAM DRIP 50 mg/50mL 50 ML IV SCH ×6 (01:57→21:28)
[2021-07-06] MEDS: LEVALBUTEROL HCL 1.25 MG/3 ML NEB NEB SCH ×6 (04:10→22:28)
[2021-07-06] MEDS: IPRATROPIUM BROM 0.5 MG/2.5ML INH SOL NEB SCH ×6 (04:10→22:28)
[2021-07-06 04:25] LABS: Hemoglobin 9.3 g/dL (13.5-17.5)
[2021-07-06 04:29] LABS: Hematocrit 28.3 % (41.0-53.0); Mean Corpuscular Hemoglobin 28.2 pg (28.0-32.0); Mean Corpuscular Hgb Conc. 32.9 g/dL (32.0-36.0); Mean Corpuscular Volume 85.8 fL (80.0-100.0); Red Cell Distribution Width 15.1 % (11.8-14.3)
[2021-07-06 04:47] LABS: Albumin 1.7 g/dL (3.4-5.0); Calcium 7.9 mg/dL (8.5-10.1); Magnesium 1.9 mg/dL (1.6-2.6); Potassium 4.2 mmol/L (3.5-5.1)
[2021-07-06 04:50] LABS: BUN/Creatinine Ratio 47.8
[2021-07-06 04:52] LABS: Bilirubin, Total 0.3 mg/dL (0.2-1.0); Phosphorus 2.6 mg/dL (2.5-4.90); Total Protein 5.7 g/dL (6.4-8.2)
[2021-07-06 05:10] LABS: White Blood Cell 33.1 10^3/uL (4.4-10.8)
[2021-07-06 05:11] LABS: Basophils % (manual) 0 (0.0-2.0); Blast Cells 0; Eosinophils % (manual) 0 (0-7); Myelocytes % 0; Promyelocytes % 0; Reactive Lymphocytes 0
[2021-07-06] MEDS: InsuLIN REG 1unit/0.01ml Soln (100units/ml) SC SCH ×5 (05:31→23:32)
[2021-07-06] MEDS: MEROPENEM 1GM IVPB 100 ML IV SCH ×3 (05:32→21:26)
[2021-07-06 09:03] LABS: Band Neutrophils % (manual) 3; Lymphocytes % (manual) 5 (10.0-50.0); Metamyelocytes % 1; Monocytes % (manual) 4 (0-12)
[2021-07-06] MEDS: PANTOPRAZOLE 40 MG/10 ML VIAL INJ IV SCH ×2 (09:31→21:26)
[2021-07-06] MEDS: BUMETANIDE 1mg/4ml VIAL (0.25mg/ml) IV SCH (09:31)
[2021-07-06] MEDS: SODIUM CHLOR 0.9% PF (SALINE LOCK) 10ML VIAL/SYR IV SCH ×2 (09:33→21:27)
[2021-07-06] MEDS: fentaNYL Drip 2500mCg/250mlNS 250 ML IV SCH ×2 (09:44→23:12)
[2021-07-06] MEDS ORDERED: methylPREDNISolone SOD SUCC 125 MG/2 ML VL IV SCH (10:00)
[2021-07-06] MEDS ORDERED: ACETAMINOPHEN 650 MG RECT SUPP PR PRN (10:30)
[2021-07-06] MEDS: ENOXAPARIN SOD 30 MG/0.3 ML SYRINGE SC SCH (10:45)
[2021-07-06] MEDS ORDERED: LIDOCAINE 2%HCL (LOCAL ANESTH.) INJ 10ml MDV ONE (11:01)
[2021-07-06] MEDS ORDERED: MICAFUNGIN SODIUM 100 MG in SODIUM CHL 0.9% 100 ML IV ONE (12:15)
[2021-07-06] MEDS: PHENYLEPHRINE IV 250 ML IV SCH ×2 (13:45→22:05)
[2021-07-06 19:39] LABS: Hemoglobin 9.1 g/dL (13.5-17.5); Mean Corpuscular Volume 86.5 fL (80.0-100.0)
[2021-07-06 19:40] LABS: Hematocrit 27.7 % (41.0-53.0); Mean Corpuscular Hemoglobin 28.4 pg (28.0-32.0); Mean Corpuscular Hgb Conc. 32.9 g/dL (32.0-36.0); Red Cell Distribution Width 14.9 % (11.8-14.3)
[2021-07-06 19:46] LABS: White Blood Cell 35.6 10^3/uL (4.4-10.8)
[2021-07-06 19:47] LABS: Basophils % (manual) 0 (0.0-2.0); Blast Cells 0; Eosinophils % (manual) 0 (0-7); Metamyelocytes % 0; Myelocytes % 0; Promyelocytes % 0; Reactive Lymphocytes 0
[2021-07-06] MEDS ORDERED: TPN PER PHARMACY IV NR ×8 (20:00)
[2021-07-06 20:50] LABS: Band Neutrophils % (manual) 2; Lymphocytes % (manual) 3 (10.0-50.0); Monocytes % (manual) 4 (0-12)
[2021-07-06] MEDS: ACETAMINOPHEN 650 MG RECT SUPP PR PRN (22:50)
[2021-07-07] VITALS (101 sets, daily range): BP systolic 76–175; BP diastolic 25–62
[2021-07-07] MEDS: LEVALBUTEROL HCL 1.25 MG/3 ML NEB NEB SCH ×6 (02:07→21:46)
[2021-07-07] MEDS: IPRATROPIUM BROM 0.5 MG/2.5ML INH SOL NEB SCH ×6 (02:07→21:46)
[2021-07-07] MEDS: VANCOMYCIN 1GM/250ML 250 ML IV SCH ×4 (02:29→20:19)
[2021-07-07] MEDS: MIDAZOLAM DRIP 50 mg/50mL 50 ML IV SCH ×6 (02:30→20:59)
[2021-07-07 04:45] LABS: Hemoglobin 9.4 g/dL (13.5-17.5)
[2021-07-07 04:47] LABS: Hematocrit 28.4 % (41.0-53.0); Mean Corpuscular Hemoglobin 28.7 pg (28.0-32.0); Mean Corpuscular Hgb Conc. 33.2 g/dL (32.0-36.0); Mean Corpuscular Volume 86.5 fL (80.0-100.0); Red Blood Cells 3.28 10^6/uL (4.5-5.90); Red Cell Distribution Width 14.8 % (11.8-14.3)
[2021-07-07 04:58] LABS: INR 1.43 (0.9-1.15)
[2021-07-07] MEDS: PROPOFOL 100 ML IV SCH ×6 (05:00→20:59)
[2021-07-07 05:01] LABS: Albumin 1.6 g/dL (3.4-5.0); BUN/Creatinine Ratio 43.8; Calcium 7.9 mg/dL (8.5-10.1); Magnesium 2.1 mg/dL (1.6-2.6); Potassium 4.3 mmol/L (3.5-5.1)
[2021-07-07 05:03] LABS: Bilirubin, Total 0.5 mg/dL (0.2-1.0); Phosphorus 2.8 mg/dL (2.5-4.90); Total Protein 5.5 g/dL (6.4-8.2)
[2021-07-07] MEDS: MEROPENEM 1GM IVPB 100 ML IV SCH ×3 (05:05→21:06)
[2021-07-07] MEDS: ACCU-CHEK COMFORT CURVE STRIP VI SCH ×3 (05:05→23:17)
[2021-07-07] MEDS: InsuLIN REG 1unit/0.01ml Soln (100units/ml) SC SCH ×3 (05:11→23:17)
[2021-07-07] MEDS: SOD CHL 0.45% 1,000 ML IV SCH ×2 (05:12→20:42)
[2021-07-07] MEDS: PHENYLEPHRINE IV 250 ML IV SCH ×3 (05:13→23:12)
[2021-07-07 05:29] LABS: White Blood Cell 31.7 10^3/uL (4.4-10.8)
[2021-07-07 05:30] LABS: Basophils % (manual) 0 (0.0-2.0); Blast Cells 0; Eosinophils % (manual) 0 (0-7); Myelocytes % 0; Promyelocytes % 0; Reactive Lymphocytes 0
[2021-07-07 07:39] LABS: Band Neutrophils % (manual) 74; Lymphocytes % (manual) 7 (10.0-50.0); Metamyelocytes % 1; Monocytes % (manual) 6 (0-12)
[2021-07-07] MEDS: PANTOPRAZOLE 40 MG/10 ML VIAL INJ IV SCH ×2 (10:27→21:06)
[2021-07-07] MEDS: BUMETANIDE 1mg/4ml VIAL (0.25mg/ml) IV SCH (10:27)
[2021-07-07] MEDS: ENOXAPARIN SOD 30 MG/0.3 ML SYRINGE SC SCH (10:27)
[2021-07-07] MEDS: MICAFUNGIN SODIUM 100 MG in SODIUM CHL 0.9% 100 ML IV SCH (10:28)
[2021-07-07] MEDS: SODIUM CHLOR 0.9% PF (SALINE LOCK) 10ML VIAL/SYR IV SCH ×2 (10:41→22:00)
[2021-07-07] MEDS: fentaNYL Drip 2500mCg/250mlNS 250 ML IV SCH ×2 (12:09→17:20)
[2021-07-07] MEDS: TPN PER PHARMACY IV NR ×8 (20:06)
[2021-07-08] VITALS (97 sets, daily range): BP systolic 85–137; BP diastolic 27–48
[2021-07-08] MEDS: MIDAZOLAM DRIP 50 mg/50mL 50 ML IV SCH ×6 (01:33→21:13)
[2021-07-08] MEDS: PROPOFOL 100 ML IV SCH ×6 (01:34→21:12)
[2021-07-08] MEDS: IPRATROPIUM BROM 0.5 MG/2.5ML INH SOL NEB SCH ×6 (02:15→23:44)
[2021-07-08] MEDS: LEVALBUTEROL HCL 1.25 MG/3 ML NEB NEB SCH ×6 (02:15→23:43)
[2021-07-08] MEDS: VANCOMYCIN 1GM/250ML 250 ML IV SCH ×3 (02:37→20:23)
[2021-07-08] MEDS: fentaNYL Drip 2500mCg/250mlNS 250 ML IV SCH ×3 (03:05→21:16)
[2021-07-08] MEDS: PHENYLEPHRINE IV 250 ML IV SCH ×7 (03:13→23:35)
[2021-07-08 04:47] LABS: Albumin 1.1 g/dL (3.4-5.0); Calcium 7.1 mg/dL (8.5-10.1); Magnesium 2.6 mg/dL (1.6-2.6); Potassium 3.6 mmol/L (3.5-5.1)
[2021-07-08 04:51] LABS: BUN/Creatinine Ratio 41.1; Bilirubin, Total 0.4 mg/dL (0.2-1.0); Phosphorus 2.4 mg/dL (2.5-4.90); Total Protein 4.6 g/dL (6.4-8.2)
[2021-07-08] MEDS: MEROPENEM 1GM IVPB 100 ML IV SCH ×3 (05:01→21:35)
[2021-07-08] MEDS: InsuLIN REG 1unit/0.01ml Soln (100units/ml) SC SCH ×4 (05:21→23:53)
[2021-07-08] MEDS: ACCU-CHEK COMFORT CURVE STRIP VI SCH ×4 (05:21→23:53)
[2021-07-08 08:02] LABS: Mean Corpuscular Hgb Conc. 33.5 g/dL (32.0-36.0)
[2021-07-08 08:03] LABS: Hematocrit 25.1 % (41.0-53.0); Hemoglobin 8.4 g/dL (13.5-17.5); Mean Corpuscular Hemoglobin 29.3 pg (28.0-32.0); Mean Corpuscular Volume 87.5 fL (80.0-100.0); Red Blood Cells 2.87 10^6/uL (4.5-5.90)
[2021-07-08 08:13] LABS: White Blood Cell 33.4 10^3/uL (4.4-10.8)
[2021-07-08 08:14] LABS: Basophils % (manual) 0 (0.0-2.0); Blast Cells 0; Myelocytes % 0; Promyelocytes % 0; Reactive Lymphocytes 0
[2021-07-08] MEDS ORDERED: POTASSIUM PHOSP 22MEQ(15MMOLE) in NS 100 ML IV ONE (09:30)
[2021-07-08 09:31] LABS: Band Neutrophils % (manual) 71; Eosinophils % (manual) 2 (0-7); Lymphocytes % (manual) 5 (10.0-50.0); Metamyelocytes % 1; Monocytes % (manual) 7 (0-12)
[2021-07-08] MEDS: SOD CHL 0.45% 1,000 ML IV SCH (11:00)
[2021-07-08] MEDS: BUMETANIDE 1mg/4ml VIAL (0.25mg/ml) IV SCH (11:24)
[2021-07-08] MEDS: MICAFUNGIN SODIUM 100 MG in SODIUM CHL 0.9% 100 ML IV SCH (11:25)
[2021-07-08] MEDS: PANTOPRAZOLE 40 MG/10 ML VIAL INJ IV SCH ×2 (11:25→21:12)
[2021-07-08] MEDS: ENOXAPARIN SOD 30 MG/0.3 ML SYRINGE SC SCH (11:26)
[2021-07-08] MEDS: SODIUM CHLOR 0.9% PF (SALINE LOCK) 10ML VIAL/SYR IV SCH ×2 (11:52→21:36)
[2021-07-08] MEDS: TPN PER PHARMACY IV NR ×16 (19:54→20:27)
[2021-07-09] VITALS (104 sets, daily range): BP systolic 76–130; BP diastolic 27–71
[2021-07-09] MEDS: MIDAZOLAM DRIP 50 mg/50mL 50 ML IV SCH ×6 (01:18→22:05)
[2021-07-09] MEDS: PROPOFOL 100 ML IV SCH ×5 (01:19→21:14)
[2021-07-09] MEDS: VANCOMYCIN 1GM/250ML 250 ML IV SCH ×3 (02:22→19:00)
[2021-07-09] MEDS: PHENYLEPHRINE IV 250 ML IV SCH ×4 (02:22→11:50)
[2021-07-09] MEDS: IPRATROPIUM BROM 0.5 MG/2.5ML INH SOL NEB SCH ×6 (02:39→21:54)
[2021-07-09] MEDS: LEVALBUTEROL HCL 1.25 MG/3 ML NEB NEB SCH ×6 (02:39→21:54)
[2021-07-09 04:44] LABS: Red Blood Cells 2.57 10^6/uL (4.5-5.90)
[2021-07-09 04:47] LABS: Hematocrit 22.5 % (41.0-53.0); Hemoglobin 7.5 g/dL (13.5-17.5); Mean Corpuscular Hemoglobin 29.1 pg (28.0-32.0); Mean Corpuscular Hgb Conc. 33.2 g/dL (32.0-36.0); Mean Corpuscular Volume 87.7 fL (80.0-100.0); Red Cell Distribution Width 15.3 % (11.8-14.3)
[2021-07-09 04:57] LABS: Potassium 3.7 mmol/L (3.5-5.1)
[2021-07-09 05:05] LABS: White Blood Cell 31.6 10^3/uL (4.4-10.8)
[2021-07-09 05:06] LABS: Albumin 1.1 g/dL (3.4-5.0); BUN/Creatinine Ratio 40.2; Basophils % (manual) 0 (0.0-2.0); Bilirubin, Total 0.6 mg/dL (0.2-1.0); Blast Cells 0; Calcium 6.7 mg/dL (8.5-10.1); Magnesium 2.2 mg/dL (1.6-2.6); Myelocytes % 0; Phosphorus 4.2 mg/dL (2.5-4.90); Promyelocytes % 0; Reactive Lymphocytes 0; Total Protein 4.6 g/dL (6.4-8.2)
[2021-07-09] MEDS: MEROPENEM 1GM IVPB 100 ML IV SCH ×3 (05:19→21:13)
[2021-07-09] MEDS: InsuLIN REG 1unit/0.01ml Soln (100units/ml) SC SCH ×4 (05:59→23:58)
[2021-07-09] MEDS: ACCU-CHEK COMFORT CURVE STRIP VI SCH ×4 (05:59→23:58)
[2021-07-09] MEDS: fentaNYL Drip 2500mCg/250mlNS 250 ML IV SCH ×2 (06:41→16:41)
[2021-07-09 07:16] LABS: Band Neutrophils % (manual) 70; Eosinophils % (manual) 2 (0-7); Lymphocytes % (manual) 9 (10.0-50.0); Metamyelocytes % 3; Monocytes % (manual) 3 (0-12)
[2021-07-09] MEDS: PANTOPRAZOLE 40 MG/10 ML VIAL INJ IV SCH ×2 (10:02→21:13)
[2021-07-09] MEDS: ENOXAPARIN SOD 30 MG/0.3 ML SYRINGE SC SCH (10:03)
[2021-07-09] MEDS: BUMETANIDE 1mg/4ml VIAL (0.25mg/ml) IV SCH (10:03)
[2021-07-09] MEDS: MICAFUNGIN SODIUM 100 MG in SODIUM CHL 0.9% 100 ML IV SCH (10:03)
[2021-07-09] MEDS: SODIUM CHLOR 0.9% PF (SALINE LOCK) 10ML VIAL/SYR IV SCH ×2 (10:05→21:15)
[2021-07-09] MEDS ORDERED: CALCIUM GLUC 1,000mg/50ml-NS 50 ML IV ONE (12:00)
[2021-07-09] MEDS: PHENYLEPHRINE INJ 80 MG in SODIUM CHL 0.9% 242 ML IV SCH (15:08)
[2021-07-09] MEDS: TPN PER PHARMACY IV NR ×8 (19:56)
[2021-07-09] MEDS ORDERED: TPN PER PHARMACY IV NR ×11 (20:00)
[2021-07-10] VITALS (80 sets, daily range): BP systolic 91–125; BP diastolic 33–69
[2021-07-10] MEDS: PHENYLEPHRINE INJ 80 MG in SODIUM CHL 0.9% 242 ML IV SCH ×2 (00:25→12:20)
[2021-07-10] MEDS: VANCOMYCIN 1GM/250ML 250 ML IV SCH ×2 (00:29→13:46)
[2021-07-10] MEDS: PROPOFOL 100 ML IV SCH ×5 (01:30→23:48)
[2021-07-10] MEDS: IPRATROPIUM BROM 0.5 MG/2.5ML INH SOL NEB SCH ×6 (02:01→22:23)
[2021-07-10] MEDS: LEVALBUTEROL HCL 1.25 MG/3 ML NEB NEB SCH ×6 (02:01→22:23)
[2021-07-10] MEDS: fentaNYL Drip 2500mCg/250mlNS 250 ML IV SCH ×3 (02:19→22:15)
[2021-07-10] MEDS: MIDAZOLAM DRIP 50 mg/50mL 50 ML IV SCH ×5 (02:22→21:01)
[2021-07-10 04:38] LABS: Mean Corpuscular Hemoglobin 29.2 pg (28.0-32.0)
[2021-07-10 04:39] LABS: Hematocrit 22.2 % (41.0-53.0); Hemoglobin 7.5 g/dL (13.5-17.5); Mean Corpuscular Hgb Conc. 33.8 g/dL (32.0-36.0); Mean Corpuscular Volume 86.5 fL (80.0-100.0); Red Blood Cells 2.56 10^6/uL (4.5-5.90); Red Cell Distribution Width 15.5 % (11.8-14.3); White Blood Cell 27.2 10^3/uL (4.4-10.8)
[2021-07-10 04:52] LABS: Albumin 1.1 g/dL (3.4-5.0); BUN/Creatinine Ratio 42.5; Calcium 7.5 mg/dL (8.5-10.1); Magnesium 2.2 mg/dL (1.6-2.6); Phosphorus 2.8 mg/dL (2.5-4.90); Potassium 3.8 mmol/L (3.5-5.1)
[2021-07-10 05:08] LABS: Basophils % (manual) 0 (0.0-2.0); Blast Cells 0; Eosinophils % (manual) 0 (0-7); Metamyelocytes % 0; Myelocytes % 0; Promyelocytes % 0; Reactive Lymphocytes 0
[2021-07-10] MEDS: MEROPENEM 1GM IVPB 100 ML IV SCH ×3 (05:10→21:00)
[2021-07-10 05:34] LABS: Band Neutrophils % (manual) 5; Lymphocytes % (manual) 5 (10.0-50.0); Monocytes % (manual) 4 (0-12)
[2021-07-10] MEDS: ACCU-CHEK COMFORT CURVE STRIP VI SCH ×3 (06:11→18:13)
[2021-07-10] MEDS: InsuLIN REG 1unit/0.01ml Soln (100units/ml) SC SCH ×3 (06:20→18:19)
[2021-07-10] MEDS: PANTOPRAZOLE 40 MG/10 ML VIAL INJ IV SCH ×2 (09:49→21:00)
[2021-07-10] MEDS: MICAFUNGIN SODIUM 100 MG in SODIUM CHL 0.9% 100 ML IV SCH (09:49)
[2021-07-10] MEDS: SODIUM CHLOR 0.9% PF (SALINE LOCK) 10ML VIAL/SYR IV SCH ×2 (09:50→21:02)
[2021-07-10] MEDS ORDERED: BISACODYL 10 MG RECT SUPP PR PRN (17:15)
[2021-07-10] MEDS: ENOXAPARIN SOD 40 MG/0.4 ML SYRINGE SC SCH (17:56)
[2021-07-10] MEDS ORDERED: TPN PER PHARMACY IV NR ×11 (20:00)
[2021-07-11] VITALS (102 sets, daily range): BP systolic 81–139; BP diastolic 35–73
[2021-07-11] MEDS: InsuLIN REG 1unit/0.01ml Soln (100units/ml) SC SCH ×4 (01:15→18:47)
[2021-07-11] MEDS: LEVALBUTEROL HCL 1.25 MG/3 ML NEB NEB SCH ×6 (02:38→22:12)
[2021-07-11] MEDS: IPRATROPIUM BROM 0.5 MG/2.5ML INH SOL NEB SCH ×6 (02:38→22:12)
[2021-07-11 04:33] LABS: Hematocrit 20.9 % (41.0-53.0); Hemoglobin 7.1 g/dL (13.5-17.5); Mean Corpuscular Hemoglobin 29.7 pg (28.0-32.0); Mean Corpuscular Volume 87.4 fL (80.0-100.0); Red Blood Cells 2.39 10^6/uL (4.5-5.90); Red Cell Distribution Width 15.3 % (11.8-14.3); White Blood Cell 24.4 10^3/uL (4.4-10.8)
[2021-07-11 04:38] LABS: Basophils % (manual) 0 (0.0-2.0); Blast Cells 0; Promyelocytes % 0; Reactive Lymphocytes 0
[2021-07-11 04:44] LABS: BUN/Creatinine Ratio 41.7; Calcium 7.6 mg/dL (8.5-10.1); Magnesium 2.6 mg/dL (1.6-2.6)
[2021-07-11 04:47] LABS: Bilirubin, Total 0.3 mg/dL (0.2-1.0); Phosphorus 3.3 mg/dL (2.5-4.90); Total Protein 5.1 g/dL (6.4-8.2)
[2021-07-11] MEDS: MEROPENEM 1GM IVPB 100 ML IV SCH ×3 (05:53→21:29)
[2021-07-11] MEDS: ACCU-CHEK COMFORT CURVE STRIP VI SCH ×4 (06:00→18:46)
[2021-07-11 07:27] LABS: Band Neutrophils % (manual) 24; Eosinophils % (manual) 1 (0-7); Lymphocytes % (manual) 7 (10.0-50.0); Metamyelocytes % 2; Monocytes % (manual) 6 (0-12); Myelocytes % 5
[2021-07-11] MEDS: fentaNYL Drip 2500mCg/250mlNS 250 ML IV SCH ×2 (08:00→17:04)
[2021-07-11] MEDS: MIDAZOLAM DRIP 50 mg/50mL 50 ML IV SCH ×3 (08:00→20:45)
[2021-07-11] MEDS: MICAFUNGIN SODIUM 100 MG in SODIUM CHL 0.9% 100 ML IV SCH (10:01)
[2021-07-11] MEDS: PANTOPRAZOLE 40 MG/10 ML VIAL INJ IV SCH ×2 (10:01→21:29)
[2021-07-11] MEDS: PROPOFOL 100 ML IV SCH ×2 (10:01→14:36)
[2021-07-11] MEDS: SODIUM CHLOR 0.9% PF (SALINE LOCK) 10ML VIAL/SYR IV SCH ×2 (10:02→21:29)
[2021-07-11] MEDS: ENOXAPARIN SOD 40 MG/0.4 ML SYRINGE SC SCH (10:02)
[2021-07-11] MEDS: PHENYLEPHRINE INJ 80 MG in SODIUM CHL 0.9% 242 ML IV SCH ×2 (11:00→12:30)
[2021-07-11] MEDS: SODIUM CHLORIDE 0.9% 1,000 ML IV SCH (14:37)
[2021-07-11] MEDS: VANCOMYCIN 1GM/250ML 250 ML IV SCH (14:39)
[2021-07-11] MEDS ORDERED: TPN PER PHARMACY IV NR ×8 (20:00)
[2021-07-11] MEDS ORDERED: PHENYLEPHRINE HCL 10 MG/ML VL ONE (20:27)
[2021-07-11] MEDS ORDERED: PHENYLEPHRINE IV 250 ML IV ONE (20:27)
[2021-07-12] VITALS (101 sets, daily range): BP systolic 87–134; BP diastolic 33–67
[2021-07-12] MEDS: ACCU-CHEK COMFORT CURVE STRIP VI SCH ×5 (00:08→17:46)
[2021-07-12] MEDS: InsuLIN REG 1unit/0.01ml Soln (100units/ml) SC SCH ×5 (00:09→23:32)
[2021-07-12] MEDS: SODIUM CHLORIDE 0.9% 1,000 ML IV SCH ×3 (01:20→16:41)
[2021-07-12] MEDS: IPRATROPIUM BROM 0.5 MG/2.5ML INH SOL NEB SCH ×6 (01:56→22:00)
[2021-07-12] MEDS: LEVALBUTEROL HCL 1.25 MG/3 ML NEB NEB SCH ×6 (01:56→22:00)
[2021-07-12 02:43] LABS: Hematocrit 21.6 % (41.0-53.0)
[2021-07-12 02:44] LABS: Hemoglobin 7.2 g/dL (13.5-17.5); Mean Corpuscular Hemoglobin 28.3 pg (28.0-32.0); Mean Corpuscular Hgb Conc. 33.1 g/dL (32.0-36.0); Mean Corpuscular Volume 85.6 fL (80.0-100.0); Red Blood Cells 2.53 10^6/uL (4.5-5.90); Red Cell Distribution Width 15.2 % (11.8-14.3); White Blood Cell 26.4 10^3/uL (4.4-10.8)
[2021-07-12 02:57] LABS: Albumin 1.1 g/dL (3.4-5.0); Calcium 7.6 mg/dL (8.5-10.1); Magnesium 2.8 mg/dL (1.6-2.6); Potassium 4.1 mmol/L (3.5-5.1)
[2021-07-12 03:02] LABS: BUN/Creatinine Ratio 45.2; Bilirubin, Total 0.5 mg/dL (0.2-1.0); Phosphorus 3.6 mg/dL (2.5-4.90); Total Protein 5.6 g/dL (6.4-8.2)
[2021-07-12 03:20] LABS: Basophils % (manual) 0 (0.0-2.0); Blast Cells 0; Promyelocytes % 0; Reactive Lymphocytes 0
[2021-07-12] MEDS: MEROPENEM 1GM IVPB 100 ML IV SCH ×3 (05:53→21:06)
[2021-07-12] MEDS ORDERED: PHENYLEPHRINE HCL 10 MG/ML VL ONE (06:11)
[2021-07-12] MEDS ORDERED: PHENYLEPHRINE IV 250 ML IV ONE (06:11)
[2021-07-12 08:32] LABS: Band Neutrophils % (manual) 8; Eosinophils % (manual) 1 (0-7); Lymphocytes % (manual) 3 (10.0-50.0); Metamyelocytes % 1; Monocytes % (manual) 8 (0-12); Myelocytes % 1
[2021-07-12] MEDS: SODIUM CHLOR 0.9% PF (SALINE LOCK) 10ML VIAL/SYR IV SCH ×2 (09:08→21:07)
[2021-07-12] MEDS: ENOXAPARIN SOD 40 MG/0.4 ML SYRINGE SC SCH (09:37)
[2021-07-12] MEDS: PANTOPRAZOLE 40 MG/10 ML VIAL INJ IV SCH ×2 (09:37→21:06)
[2021-07-12] MEDS: MIDAZOLAM DRIP 50 mg/50mL 50 ML IV SCH (10:15)
[2021-07-12] MEDS: PROPOFOL 100 ML IV SCH (10:16)
[2021-07-12] MEDS: MICAFUNGIN SODIUM 100 MG in SODIUM CHL 0.9% 100 ML IV SCH ×2 (11:40→13:47)
[2021-07-12] MEDS: fentaNYL Drip 2500mCg/250mlNS 250 ML IV SCH (11:42)
[2021-07-12] MEDS: VANCOMYCIN 1GM/250ML 250 ML IV SCH (13:20)
[2021-07-12] MEDS: PHENYLEPHRINE INJ 80 MG in SODIUM CHL 0.9% 242 ML IV SCH (16:41)
[2021-07-12] MEDS: TPN PER PHARMACY IV SCH ×7 (20:03)
[2021-07-13] VITALS (103 sets, daily range): BP systolic 89–138; BP diastolic 43–77
[2021-07-13] MEDS: IPRATROPIUM BROM 0.5 MG/2.5ML INH SOL NEB SCH ×6 (02:05→22:39)
[2021-07-13] MEDS: LEVALBUTEROL HCL 1.25 MG/3 ML NEB NEB SCH ×6 (02:05→22:39)
[2021-07-13 02:54] LABS: Eosinophils # (auto) 0.2 10 ^3/uL (0-0.8); Eosinophils % (auto) 0.9 % (0.0-7.0)
[2021-07-13 02:56] LABS: Basophils # (auto) 0 10 ^3/uL (0-0.2); Basophils % (auto) 0.1 % (0.0-2.0); Hematocrit 21.9 % (41.0-53.0); Hemoglobin 7.3 g/dL (13.5-17.5); Lymphocytes # (auto) 0.5 10 ^3/uL (0.4-5.4); Lymphocytes % (auto) 2.1 % (10.0-50.0); Mean Corpuscular Hemoglobin 28.3 pg (28.0-32.0); Mean Corpuscular Hgb Conc. 33.2 g/dL (32.0-36.0); Mean Corpuscular Volume 85.1 fL (80.0-100.0); Monocytes # (auto) 1.6 10 ^3/uL (0-1.3); Monocytes % (auto) 6.7 % (0.0-12.0); Neutrophils # (auto) 21.6 10 ^3/uL (1.6-8.6); Neutrophils % (auto) 90.2 % (37.0-80.0); Nucleated Red Blood Cells % 0.4 %; Red Blood Cells 2.57 10^6/uL (4.5-5.90); Red Cell Distribution Width 15.3 % (11.8-14.3); White Blood Cell 23.9 10^3/uL (4.4-10.8)
[2021-07-13 03:12] LABS: BUN/Creatinine Ratio 42.4; Calcium 7.7 mg/dL (8.5-10.1); Magnesium 2.5 mg/dL (1.6-2.6); Potassium 3.8 mmol/L (3.5-5.1)
[2021-07-13 03:14] LABS: Bilirubin, Total 0.2 mg/dL (0.2-1.0); Phosphorus 2.9 mg/dL (2.5-4.90); Total Protein 5.5 g/dL (6.4-8.2)
[2021-07-13] MEDS: ACCU-CHEK COMFORT CURVE STRIP VI SCH ×3 (05:30→18:16)
[2021-07-13] MEDS: MEROPENEM 1GM IVPB 100 ML IV SCH ×3 (05:30→21:58)
[2021-07-13] MEDS: InsuLIN REG 1unit/0.01ml Soln (100units/ml) SC SCH ×3 (05:31→18:00)
[2021-07-13] MEDS: PANTOPRAZOLE 40 MG/10 ML VIAL INJ IV SCH ×2 (09:34→21:58)
[2021-07-13] MEDS: VANCOMYCIN 1GM/250ML 250 ML IV SCH (09:35)
[2021-07-13] MEDS: ENOXAPARIN SOD 40 MG/0.4 ML SYRINGE SC SCH (09:35)
[2021-07-13] MEDS: SODIUM CHLOR 0.9% PF (SALINE LOCK) 10ML VIAL/SYR IV SCH ×2 (10:00→22:02)
[2021-07-13] MEDS: MIDAZOLAM DRIP 50 mg/50mL 50 ML IV SCH ×4 (10:43→21:59)
[2021-07-13] MEDS: fentaNYL Drip 2500mCg/250mlNS 250 ML IV SCH ×2 (11:45→14:58)
[2021-07-13] MEDS: PHENYLEPHRINE INJ 80 MG in SODIUM CHL 0.9% 242 ML IV SCH ×2 (12:07→21:35)
[2021-07-13] MEDS: PROPOFOL 100 ML IV SCH ×3 (14:36→22:56)
[2021-07-13] MEDS: TPN PER PHARMACY IV SCH ×7 (19:56)
[2021-07-13] MEDS ORDERED: TPN PER PHARMACY IV SCH ×9 (20:00)
[2021-07-14] VITALS (100 sets, daily range): BP systolic 93–153; BP diastolic 45–80
[2021-07-14] MEDS: fentaNYL Drip 2500mCg/250mlNS 250 ML IV SCH ×2 (00:04→11:08)
[2021-07-14] MEDS: ACCU-CHEK COMFORT CURVE STRIP VI SCH ×4 (00:31→18:12)
[2021-07-14] MEDS: InsuLIN REG 1unit/0.01ml Soln (100units/ml) SC SCH ×4 (00:33→18:13)
[2021-07-14] MEDS: MIDAZOLAM DRIP 50 mg/50mL 50 ML IV SCH ×3 (01:22→10:36)
[2021-07-14] MEDS: IPRATROPIUM BROM 0.5 MG/2.5ML INH SOL NEB SCH ×6 (02:32→22:15)
[2021-07-14] MEDS: LEVALBUTEROL HCL 1.25 MG/3 ML NEB NEB SCH ×6 (02:32→22:15)
[2021-07-14] MEDS: PROPOFOL 100 ML IV SCH ×4 (04:00→21:57)
[2021-07-14] MEDS: VANCOMYCIN 1GM/250ML 250 ML IV SCH (04:00)
[2021-07-14] MEDS: MEROPENEM 1GM IVPB 100 ML IV SCH ×3 (05:37→21:57)
[2021-07-14] MEDS: SODIUM CHLOR 0.9% PF (SALINE LOCK) 10ML VIAL/SYR IV SCH ×2 (10:33→22:10)
[2021-07-14] MEDS: PANTOPRAZOLE 40 MG/10 ML VIAL INJ IV SCH ×2 (10:33→21:56)
[2021-07-14] MEDS: MICAFUNGIN SODIUM 100 MG in SODIUM CHL 0.9% 100 ML IV SCH (10:33)
[2021-07-14] MEDS: ENOXAPARIN SOD 40 MG/0.4 ML SYRINGE SC SCH (10:33)
[2021-07-14 11:19] LABS: Mean Corpuscular Volume 87.2 fL (80.0-100.0); Red Cell Distribution Width 15.7 % (11.8-14.3)
[2021-07-14 11:21] LABS: Hematocrit 22.7 % (41.0-53.0); Hemoglobin 7.6 g/dL (13.5-17.5); Mean Corpuscular Hemoglobin 29.3 pg (28.0-32.0); Mean Corpuscular Hgb Conc. 33.6 g/dL (32.0-36.0)
[2021-07-14 11:45] LABS: Basophils % (manual) 0 (0.0-2.0); Blast Cells 0; Eosinophils % (manual) 0 (0-7); Promyelocytes % 0; Reactive Lymphocytes 0
[2021-07-14 12:28] LABS: BUN/Creatinine Ratio 39.8; Potassium 4.1 mmol/L (3.5-5.1)
[2021-07-14 12:29] LABS: Bilirubin, Total 0.3 mg/dL (0.2-1.0); Calcium 7.7 mg/dL (8.5-10.1); Magnesium 2.4 mg/dL (1.6-2.6); Phosphorus 3.1 mg/dL (2.5-4.90); Total Protein 5.6 g/dL (6.4-8.2)
[2021-07-14 12:53] LABS: Band Neutrophils % (manual) 22; Lymphocytes % (manual) 7 (10.0-50.0); Metamyelocytes % 1; Monocytes % (manual) 2 (0-12); Myelocytes % 8
[2021-07-14] MEDS ORDERED: SODIUM FERR GLUC 62.5MG/5ML 125 MG in SODIUM CHL 0.9% 100 ML IV ONE (13:15)
[2021-07-14] MEDS ORDERED: FUROSEMIDE 20 MG/2 ML VIAL ONE (14:34)
[2021-07-14] MEDS ORDERED: FUROSEMIDE 20 MG/2 ML VIAL IV ONE (14:45)
[2021-07-14] MEDS ORDERED: TPN PER PHARMACY IV NR ×9 (20:00)
[2021-07-14] MEDS: TPN PER PHARMACY IV SCH ×7 (20:11)
[2021-07-15] VITALS (93 sets, daily range): BP systolic 88–179; BP diastolic 9–87
[2021-07-15] MEDS: ACCU-CHEK COMFORT CURVE STRIP VI SCH ×4 (00:12→17:54)
[2021-07-15] MEDS: fentaNYL Drip 2500mCg/250mlNS 250 ML IV SCH ×2 (00:12→21:15)
[2021-07-15] MEDS: VANCOMYCIN 1GM/250ML 250 ML IV SCH (01:11)
[2021-07-15] MEDS: LEVALBUTEROL HCL 1.25 MG/3 ML NEB NEB SCH ×6 (02:25→22:02)
[2021-07-15] MEDS: IPRATROPIUM BROM 0.5 MG/2.5ML INH SOL NEB SCH ×6 (02:25→22:02)
[2021-07-15] MEDS ORDERED: diphenhdrAMINE HCL 50 MG/1 ML VL IV PRN (04:45)
[2021-07-15 04:50] LABS: Potassium 3.8 mmol/L (3.5-5.1)
[2021-07-15 04:55] LABS: BUN/Creatinine Ratio 40.2; Calcium 7.8 mg/dL (8.5-10.1); Magnesium 2.3 mg/dL (1.6-2.6)
[2021-07-15 04:58] LABS: Bilirubin, Total 0.2 mg/dL (0.2-1.0); Phosphorus 4.1 mg/dL (2.5-4.90); Total Protein 5.2 g/dL (6.4-8.2)
[2021-07-15] MEDS: methylPREDNISolone SOD SUCC 40 MG/ML VL IV SCH ×4 (05:05→21:44)
[2021-07-15] MEDS: MEROPENEM 1GM IVPB 100 ML IV SCH (05:06)
[2021-07-15] MEDS: PROPOFOL 100 ML IV SCH ×3 (05:08→21:45)
[2021-07-15 05:10] LABS: Albumin 0.9 g/dL (3.4-5.0)
[2021-07-15] MEDS: InsuLIN REG 1unit/0.01ml Soln (100units/ml) SC SCH ×4 (06:17→18:00)
[2021-07-15] MEDS: ENOXAPARIN SOD 40 MG/0.4 ML SYRINGE SC SCH (09:05)
[2021-07-15] MEDS: PANTOPRAZOLE 40 MG/10 ML VIAL INJ IV SCH ×2 (09:05→21:43)
[2021-07-15] MEDS: MICAFUNGIN SODIUM 100 MG in SODIUM CHL 0.9% 100 ML IV SCH (09:05)
[2021-07-15] MEDS: SODIUM CHLOR 0.9% PF (SALINE LOCK) 10ML VIAL/SYR IV SCH ×2 (09:07→22:00)
[2021-07-15 09:45] LABS: Hematocrit 20.8 % (41.0-53.0); Mean Corpuscular Volume 84.8 fL (80.0-100.0); Red Blood Cells 2.46 10^6/uL (4.5-5.90); Red Cell Distribution Width 15.4 % (11.8-14.3); White Blood Cell 24.6 10^3/uL (4.4-10.8)
[2021-07-15] MEDS ORDERED: OMNIPAQUE ORAL SOLN 500ml 12mg/ml PO ONE (09:49)
[2021-07-15 10:22] LABS: Hemoglobin 6.9 g/dL (13.5-17.5)
[2021-07-15 10:24] LABS: Basophils % (manual) 0 (0.0-2.0); Blast Cells 0; Promyelocytes % 0; Reactive Lymphocytes 0
[2021-07-15 10:42] LABS: Band Neutrophils % (manual) 82; Lymphocytes % (manual) 3 (10.0-50.0)
[2021-07-15 10:43] LABS: Eosinophils % (manual) 1 (0-7); Metamyelocytes % 4; Monocytes % (manual) 1 (0-12); Myelocytes % 3
[2021-07-15 10:59] LABS: Basophils # (auto) 0 10 ^3/uL (0-0.2)
[2021-07-15 11:00] LABS: Basophils % (auto) 0.1 % (0.0-2.0); Eosinophils # (auto) 0.2 10 ^3/uL (0-0.8); Eosinophils % (auto) 0.7 % (0.0-7.0); Hematocrit 21.8 % (41.0-53.0); Hemoglobin 7.2 g/dL (13.5-17.5); Lymphocytes # (auto) 0.4 10 ^3/uL (0.4-5.4); Lymphocytes % (auto) 1.8 % (10.0-50.0); Mean Corpuscular Hemoglobin 28.6 pg (28.0-32.0); Mean Corpuscular Hgb Conc. 33.2 g/dL (32.0-36.0); Mean Corpuscular Volume 86.2 fL (80.0-100.0); Monocytes # (auto) 0.4 10 ^3/uL (0-1.3); Monocytes % (auto) 1.7 % (0.0-12.0); Neutrophils # (auto) 21.8 10 ^3/uL (1.6-8.6); Neutrophils % (auto) 95.7 % (37.0-80.0); Nucleated Red Blood Cells % 0.5 %; Red Blood Cells 2.53 10^6/uL (4.5-5.90); Red Cell Distribution Width 15.9 % (11.8-14.3); White Blood Cell 22.8 10^3/uL (4.4-10.8)
[2021-07-15] MEDS: PHENYLEPHRINE INJ 80 MG in SODIUM CHL 0.9% 242 ML IV SCH (12:30)
[2021-07-15] MEDS: SODIUM FERR GLUC 62.5MG/5ML 125 MG in SODIUM CHL 0.9% 100 ML IV SCH (12:49)
[2021-07-15] MEDS: metroNIDAZOLE 500MG/100ML 100 ML IV SCH ×2 (13:38→21:44)
[2021-07-15] MEDS: LINEZOLID 600MG/300ML 300 ML IV SCH ×2 (14:52→21:44)
[2021-07-15] MEDS: CEFTRIAXONE SODIUM 2 GM in D5W 5% 50 ML IV SCH (17:52)
[2021-07-15] MEDS ORDERED: TPN PER PHARMACY IV NR ×8 (20:00)
[2021-07-16] VITALS (102 sets, daily range): BP systolic 98–130; BP diastolic 42–63
[2021-07-16] MEDS: InsuLIN REG 1unit/0.01ml Soln (100units/ml) SC SCH ×4 (00:15→17:37)
[2021-07-16] MEDS: ACCU-CHEK COMFORT CURVE STRIP VI SCH ×4 (00:15→17:37)
[2021-07-16] MEDS: IPRATROPIUM BROM 0.5 MG/2.5ML INH SOL NEB SCH ×6 (02:04→22:18)
[2021-07-16] MEDS: LEVALBUTEROL HCL 1.25 MG/3 ML NEB NEB SCH ×6 (02:04→22:18)
[2021-07-16 03:49] LABS: Hematocrit 19.1 % (41.0-53.0); Mean Corpuscular Hemoglobin 28.3 pg (28.0-32.0); Mean Corpuscular Hgb Conc. 32.5 g/dL (32.0-36.0); Mean Corpuscular Volume 87.3 fL (80.0-100.0); Red Blood Cells 2.19 10^6/uL (4.5-5.90); Red Cell Distribution Width 15.6 % (11.8-14.3)
[2021-07-16 04:10] LABS: BUN/Creatinine Ratio 42.6; Bilirubin, Total 0.2 mg/dL (0.2-1.0); Calcium 7.6 mg/dL (8.5-10.1); Magnesium 2.6 mg/dL (1.6-2.6); Phosphorus 4.6 mg/dL (2.5-4.90); Total Protein 5.7 g/dL (6.4-8.2)
[2021-07-16 04:33] LABS: Hemoglobin 6.2 g/dL (13.5-17.5)
[2021-07-16 04:34] LABS: Basophils % (manual) 0 (0.0-2.0); Blast Cells 0; Eosinophils % (manual) 0 (0-7); Promyelocytes % 0; Reactive Lymphocytes 0
[2021-07-16 04:46] LABS: Band Neutrophils % (manual) 10; Lymphocytes % (manual) 7 (10.0-50.0); Metamyelocytes % 3; Monocytes % (manual) 1 (0-12); Myelocytes % 2
[2021-07-16] MEDS: metroNIDAZOLE 500MG/100ML 100 ML IV SCH ×3 (05:36→21:51)
[2021-07-16] MEDS: methylPREDNISolone SOD SUCC 40 MG/ML VL IV SCH (05:36)
[2021-07-16] MEDS: PROPOFOL 100 ML IV SCH ×5 (05:49→20:10)
[2021-07-16] MEDS: fentaNYL Drip 2500mCg/250mlNS 250 ML IV SCH ×2 (08:17→20:09)
[2021-07-16] MEDS: SODIUM CHLOR 0.9% PF (SALINE LOCK) 10ML VIAL/SYR IV SCH ×2 (09:35→21:51)
[2021-07-16] MEDS: MICAFUNGIN SODIUM 100 MG in SODIUM CHL 0.9% 100 ML IV SCH (09:35)
[2021-07-16] MEDS: CEFTRIAXONE SODIUM 2 GM in D5W 5% 50 ML IV SCH (09:35)
[2021-07-16] MEDS: ENOXAPARIN SOD 40 MG/0.4 ML SYRINGE SC SCH (10:00)
[2021-07-16] MEDS: PANTOPRAZOLE 40 MG/10 ML VIAL INJ IV SCH ×2 (10:18→21:51)
[2021-07-16] MEDS: LINEZOLID 600MG/300ML 300 ML IV SCH ×2 (10:19→23:24)
[2021-07-16] MEDS: SODIUM FERR GLUC 62.5MG/5ML 125 MG in SODIUM CHL 0.9% 100 ML IV SCH (12:29)
[2021-07-16] MEDS: PHENYLEPHRINE INJ 80 MG in SODIUM CHL 0.9% 242 ML IV SCH (12:30)
[2021-07-16 14:27] LABS: Hematocrit 19.6 % (41.0-53.0)
[2021-07-16 14:45] LABS: Hemoglobin 5.9 g/dL (13.5-17.5)
[2021-07-16] MEDS ORDERED: TPN PER PHARMACY IV NR ×6 (20:00)
[2021-07-16] MEDS: MIDAZOLAM DRIP 50 mg/50mL 50 ML IV SCH (20:08)
[2021-07-16] MEDS ORDERED: EPOETIN ALFA-EPBX 10,000 UNIT/1ML VIAL SC ONE (21:00)
[2021-07-17] VITALS (108 sets, daily range): BP systolic 96–179; BP diastolic 52–81
[2021-07-17] MEDS: InsuLIN REG 1unit/0.01ml Soln (100units/ml) SC SCH ×5 (00:22→23:45)
[2021-07-17] MEDS: ACCU-CHEK COMFORT CURVE STRIP VI SCH ×5 (00:22→23:44)
[2021-07-17] MEDS: IPRATROPIUM BROM 0.5 MG/2.5ML INH SOL NEB SCH ×6 (02:23→22:08)
[2021-07-17] MEDS: LEVALBUTEROL HCL 1.25 MG/3 ML NEB NEB SCH ×6 (02:23→22:08)
[2021-07-17 05:02] LABS: Hemoglobin 7.8 g/dL (13.5-17.5); White Blood Cell 17.1 10^3/uL (4.4-10.8)
[2021-07-17 05:03] LABS: Mean Corpuscular Hemoglobin 29.1 pg (28.0-32.0); Mean Corpuscular Volume 85.7 fL (80.0-100.0); Red Blood Cells 2.69 10^6/uL (4.5-5.90); Red Cell Distribution Width 15.2 % (11.8-14.3)
[2021-07-17 05:08] LABS: Basophils % (manual) 0 (0.0-2.0); Blast Cells 0; Promyelocytes % 0; Reactive Lymphocytes 0
[2021-07-17 05:17] LABS: Albumin 1.4 g/dL (3.4-5.0); BUN/Creatinine Ratio 46.7; Magnesium 2.5 mg/dL (1.6-2.6); Potassium 4.1 mmol/L (3.5-5.1)
[2021-07-17 05:18] LABS: INR 1.27 (0.9-1.15); Partial Thromboplastin Time 33.9 sec (23.6-33.0)
[2021-07-17 05:29] LABS: Bilirubin, Total 0.2 mg/dL (0.2-1.0); Phosphorus 2.8 mg/dL (2.5-4.90); Total Protein 5.8 g/dL (6.4-8.2)
[2021-07-17] MEDS: metroNIDAZOLE 500MG/100ML 100 ML IV SCH ×3 (06:08→21:48)
[2021-07-17 06:09] LABS: Band Neutrophils % (manual) 14; Eosinophils % (manual) 1 (0-7); Lymphocytes % (manual) 4 (10.0-50.0); Metamyelocytes % 3; Monocytes % (manual) 5 (0-12); Myelocytes % 3
[2021-07-17] MEDS: fentaNYL Drip 2500mCg/250mlNS 250 ML IV SCH ×2 (07:30→19:32)
[2021-07-17] MEDS: PROPOFOL 100 ML IV SCH ×5 (07:31→22:30)
[2021-07-17] MEDS: PANTOPRAZOLE 40 MG/10 ML VIAL INJ IV SCH ×2 (09:24→21:49)
[2021-07-17] MEDS: MICAFUNGIN SODIUM 100 MG in SODIUM CHL 0.9% 100 ML IV SCH (09:25)
[2021-07-17] MEDS: LINEZOLID 600MG/300ML 300 ML IV SCH ×2 (09:25→21:48)
[2021-07-17] MEDS: CEFTRIAXONE SODIUM 2 GM in D5W 5% 50 ML IV SCH (09:25)
[2021-07-17] MEDS: SODIUM CHLOR 0.9% PF (SALINE LOCK) 10ML VIAL/SYR IV SCH ×2 (09:26→21:53)
[2021-07-17] MEDS: MIDAZOLAM DRIP 50 mg/50mL 50 ML IV SCH ×3 (09:26→23:51)
[2021-07-17] MEDS: PHENYLEPHRINE INJ 80 MG in SODIUM CHL 0.9% 242 ML IV SCH (11:28)
[2021-07-17] MEDS: SODIUM FERR GLUC 62.5MG/5ML 125 MG in SODIUM CHL 0.9% 100 ML IV SCH (12:38)
[2021-07-17] MEDS ORDERED: TPN PER PHARMACY IV NR ×8 (20:00)
[2021-07-17] MEDS: ACETAMINOPHEN 650 MG RECT SUPP PR PRN (21:17)
[2021-07-18] VITALS (99 sets, daily range): BP systolic 110–171; BP diastolic 49–83
[2021-07-18] MEDS: LEVALBUTEROL HCL 1.25 MG/3 ML NEB NEB SCH ×6 (02:03→22:22)
[2021-07-18] MEDS: IPRATROPIUM BROM 0.5 MG/2.5ML INH SOL NEB SCH ×6 (02:03→22:22)
[2021-07-18] MEDS: PROPOFOL 100 ML IV SCH ×3 (02:20→20:40)
[2021-07-18 04:35] LABS: Hematocrit 31.8 % (41.0-53.0); Hemoglobin 10.6 g/dL (13.5-17.5); Mean Corpuscular Hemoglobin 28.4 pg (28.0-32.0); Mean Corpuscular Hgb Conc. 33.2 g/dL (32.0-36.0); Mean Corpuscular Volume 85.5 fL (80.0-100.0); Red Blood Cells 3.72 10^6/uL (4.5-5.90); Red Cell Distribution Width 15.2 % (11.8-14.3); White Blood Cell 16.5 10^3/uL (4.4-10.8)
[2021-07-18 04:44] LABS: Basophils % (manual) 0 (0.0-2.0); Blast Cells 0; Metamyelocytes % 0; Promyelocytes % 0; Reactive Lymphocytes 0
[2021-07-18] MEDS: fentaNYL Drip 2500mCg/250mlNS 250 ML IV SCH ×3 (04:48→21:25)
[2021-07-18] MEDS: MIDAZOLAM DRIP 50 mg/50mL 50 ML IV SCH ×2 (04:49→10:47)
[2021-07-18 04:51] LABS: INR 1.43 (0.9-1.15); Partial Thromboplastin Time 35.5 sec (23.6-33.0)
[2021-07-18 04:55] LABS: BUN/Creatinine Ratio 51.2; Calcium 7.7 mg/dL (8.5-10.1); Magnesium 1.8 mg/dL (1.6-2.6); Phosphorus 1.7 mg/dL (2.5-4.90); Potassium 3.4 mmol/L (3.5-5.1)
[2021-07-18] MEDS: ACCU-CHEK COMFORT CURVE STRIP VI SCH ×3 (05:42→18:15)
[2021-07-18] MEDS: metroNIDAZOLE 500MG/100ML 100 ML IV SCH ×3 (05:42→22:00)
[2021-07-18] MEDS: InsuLIN REG 1unit/0.01ml Soln (100units/ml) SC SCH ×3 (05:42→18:00)
[2021-07-18] MEDS ORDERED: LACTATED RINGER'S 1,000 ML IV ONE (08:45)
[2021-07-18 08:47] LABS: Band Neutrophils % (manual) 4; Eosinophils % (manual) 1 (0-7); Lymphocytes % (manual) 7 (10.0-50.0); Monocytes % (manual) 9 (0-12); Myelocytes % 1
[2021-07-18] MEDS: CEFTRIAXONE SODIUM 2 GM in D5W 5% 50 ML IV SCH (09:03)
[2021-07-18] MEDS: MICAFUNGIN SODIUM 100 MG in SODIUM CHL 0.9% 100 ML IV SCH (10:01)
[2021-07-18] MEDS: SODIUM CHLOR 0.9% PF (SALINE LOCK) 10ML VIAL/SYR IV SCH ×2 (10:01→22:00)
[2021-07-18] MEDS: PANTOPRAZOLE 40 MG/10 ML VIAL INJ IV SCH ×2 (10:01→22:00)
[2021-07-18] MEDS: LINEZOLID 600MG/300ML 300 ML IV SCH ×2 (10:56→23:00)
[2021-07-18] MEDS ORDERED: POTASSIUM PHOSP 22MEQ(15MMOLE) in NS 100 ML IV ONE (11:00)
[2021-07-18] MEDS: PHENYLEPHRINE INJ 80 MG in SODIUM CHL 0.9% 242 ML IV SCH (12:30)
[2021-07-18] MEDS: SODIUM FERR GLUC 62.5MG/5ML 125 MG in SODIUM CHL 0.9% 100 ML IV SCH (13:21)
[2021-07-18] MEDS ORDERED: KETAMINE 50mg/ML 10ml Vial (500mg/10ml) IV ONE (14:16)
[2021-07-18] MEDS ORDERED: MIDAZOLAM HCL 2MG/2ML 2ml VIAL (1mg/ml) ONE (14:50)
[2021-07-18] MEDS ORDERED: fentaNYL CITRATE 5 ML ONE (14:50)
[2021-07-18] MEDS ORDERED: ROCURONIUM 10MG/ML 10ML VIAL IV ONE (14:51)
[2021-07-18] MEDS ORDERED: ePHEDrine SULFATE 50 MG/ML AMP ONE (14:51)
[2021-07-18] MEDS ORDERED: HYDROmorphone HCL 2 MG/ML VL/or syr ONE (14:57)
[2021-07-18] MEDS ORDERED: FAMOTIDINE (10MG/ML) 2ML VL IV ONE (15:24)
[2021-07-18] MEDS ORDERED: TPN PER PHARMACY IV NR ×7 (20:00)
[2021-07-18 21:41] LABS: White Blood Cell 21.8 10^3/uL (4.4-10.8)
[2021-07-18 21:48] LABS: Mean Corpuscular Hgb Conc. 33.3 g/dL (32.0-36.0); Mean Corpuscular Volume 89.9 fL (80.0-100.0); Red Blood Cells 3.34 10^6/uL (4.5-5.90); Red Cell Distribution Width 16.4 % (11.8-14.3)
[2021-07-18 21:51] LABS: Basophils % (manual) 0 (0.0-2.0); Blast Cells 0; Myelocytes % 0; Promyelocytes % 0; Reactive Lymphocytes 0
[2021-07-18 22:24] LABS: Band Neutrophils % (manual) 18; Eosinophils % (manual) 1 (0-7); Lymphocytes % (manual) 3 (10.0-50.0); Metamyelocytes % 2; Monocytes % (manual) 4 (0-12)
[2021-07-19] VITALS (98 sets, daily range): BP systolic 110–177; BP diastolic 49–82
[2021-07-19] MEDS: ACCU-CHEK COMFORT CURVE STRIP VI SCH ×5 (00:10→23:37)
[2021-07-19] MEDS: InsuLIN REG 1unit/0.01ml Soln (100units/ml) SC SCH ×5 (00:10→23:38)
[2021-07-19 00:28] LABS: INR 1.53 (0.9-1.15); Partial Thromboplastin Time 39.9 sec (23.6-33.0)
[2021-07-19] MEDS: LEVALBUTEROL HCL 1.25 MG/3 ML NEB NEB SCH ×6 (02:34→22:03)
[2021-07-19] MEDS: IPRATROPIUM BROM 0.5 MG/2.5ML INH SOL NEB SCH ×6 (02:34→22:03)
[2021-07-19 04:37] LABS: Hematocrit 29.1 % (41.0-53.0); Mean Corpuscular Hemoglobin 29.9 pg (28.0-32.0); Mean Corpuscular Hgb Conc. 34.3 g/dL (32.0-36.0); Mean Corpuscular Volume 87.3 fL (80.0-100.0); Red Blood Cells 3.34 10^6/uL (4.5-5.90); Red Cell Distribution Width 15.6 % (11.8-14.3); White Blood Cell 18.9 10^3/uL (4.4-10.8)
[2021-07-19 04:46] LABS: Basophils % (manual) 0 (0.0-2.0); Blast Cells 0; Metamyelocytes % 0; Myelocytes % 0; Promyelocytes % 0; Reactive Lymphocytes 0
[2021-07-19 04:55] LABS: BUN/Creatinine Ratio 42.7; Calcium 7.5 mg/dL (8.5-10.1); Magnesium 1.9 mg/dL (1.6-2.6); Phosphorus 4.7 mg/dL (2.5-4.90); Potassium 4.4 mmol/L (3.5-5.1)
[2021-07-19] MEDS: metroNIDAZOLE 500MG/100ML 100 ML IV SCH ×3 (05:14→22:05)
[2021-07-19] MEDS: fentaNYL Drip 2500mCg/250mlNS 250 ML IV SCH ×2 (06:08→23:07)
[2021-07-19 07:37] LABS: Band Neutrophils % (manual) 6; Eosinophils % (manual) 1 (0-7); Lymphocytes % (manual) 6 (10.0-50.0); Monocytes % (manual) 11 (0-12)
[2021-07-19] MEDS: MICAFUNGIN SODIUM 100 MG in SODIUM CHL 0.9% 100 ML IV SCH (09:35)
[2021-07-19] MEDS: PANTOPRAZOLE 40 MG/10 ML VIAL INJ IV SCH ×2 (09:35→22:05)
[2021-07-19] MEDS: LINEZOLID 600MG/300ML 300 ML IV SCH ×2 (10:00→23:33)
[2021-07-19] MEDS: SODIUM CHLOR 0.9% PF (SALINE LOCK) 10ML VIAL/SYR IV SCH ×2 (10:00→22:15)
[2021-07-19] MEDS: CEFTRIAXONE SODIUM 2 GM in D5W 5% 50 ML IV SCH (10:02)
[2021-07-19] MEDS ORDERED: LABETALOL HCL 5 MG/ML 4ML SYRINGE IV PRN (12:00)
[2021-07-19] MEDS: PHENYLEPHRINE INJ 80 MG in SODIUM CHL 0.9% 242 ML IV SCH (12:30)
[2021-07-19] MEDS: ACETAMINOPHEN 650 MG RECT SUPP PR PRN (12:57)
[2021-07-19] MEDS: SODIUM FERR GLUC 62.5MG/5ML 125 MG in SODIUM CHL 0.9% 100 ML IV SCH (13:39)
[2021-07-19] MEDS: MIDAZOLAM DRIP 50 mg/50mL 50 ML IV SCH (16:03)
[2021-07-19] MEDS: PROPOFOL 100 ML IV SCH ×2 (16:05→21:35)
[2021-07-19] MEDS ORDERED: FUROSEMIDE 20 MG/2 ML VIAL IV ONE (16:15)
[2021-07-19] MEDS ORDERED: TPN PER PHARMACY IV NR ×7 (20:00)
[2021-07-20] VITALS (58 sets, daily range): BP systolic 119–157; BP diastolic 53–74
[2021-07-20] MEDS: MIDAZOLAM DRIP 50 mg/50mL 50 ML IV SCH ×2 (00:33→13:02)
[2021-07-20] MEDS: PROPOFOL 100 ML IV SCH ×2 (01:44→06:17)
[2021-07-20] MEDS: LEVALBUTEROL HCL 1.25 MG/3 ML NEB NEB SCH ×3 (02:12→11:00)
[2021-07-20] MEDS: IPRATROPIUM BROM 0.5 MG/2.5ML INH SOL NEB SCH ×3 (02:12→11:00)
[2021-07-20 04:31] LABS: Hematocrit 29.5 % (41.0-53.0); Hemoglobin 10.1 g/dL (13.5-17.5); Mean Corpuscular Hemoglobin 29.3 pg (28.0-32.0); Mean Corpuscular Hgb Conc. 34.1 g/dL (32.0-36.0); Mean Corpuscular Volume 85.9 fL (80.0-100.0); Red Blood Cells 3.44 10^6/uL (4.5-5.90); Red Cell Distribution Width 15.7 % (11.8-14.3); White Blood Cell 18.4 10^3/uL (4.4-10.8)
[2021-07-20 04:47] LABS: Basophils % (manual) 0 (0.0-2.0); Blast Cells 0; Metamyelocytes % 0; Myelocytes % 0; Promyelocytes % 0; Reactive Lymphocytes 0
[2021-07-20 04:49] LABS: Potassium 3.5 mmol/L (3.5-5.1)
[2021-07-20 04:53] LABS: Albumin 1.2 g/dL (3.4-5.0); BUN/Creatinine Ratio 41.6; Calcium 7.6 mg/dL (8.5-10.1); Magnesium 1.9 mg/dL (1.6-2.6)
[2021-07-20 04:56] LABS: Bilirubin, Total 0.3 mg/dL (0.2-1.0); Phosphorus 2.7 mg/dL (2.5-4.90); Total Protein 5.1 g/dL (6.4-8.2)
[2021-07-20] MEDS: metroNIDAZOLE 500MG/100ML 100 ML IV SCH (06:17)
[2021-07-20] MEDS: ACCU-CHEK COMFORT CURVE STRIP VI SCH ×2 (06:17→12:17)
[2021-07-20] MEDS: InsuLIN REG 1unit/0.01ml Soln (100units/ml) SC SCH ×2 (06:22→12:00)
[2021-07-20] MEDS ORDERED: POTASSIUM PHOSPHATE 22 MEQ in SODIUM CHL 0.9% 100 ML IV ONE (10:00)
[2021-07-20] MEDS: SODIUM CHLOR 0.9% PF (SALINE LOCK) 10ML VIAL/SYR IV SCH (10:00)
[2021-07-20] MEDS: MICAFUNGIN SODIUM 100 MG in SODIUM CHL 0.9% 100 ML IV SCH (10:04)
[2021-07-20] MEDS: CEFTRIAXONE SODIUM 2 GM in D5W 5% 50 ML IV SCH (10:04)
[2021-07-20] MEDS: PANTOPRAZOLE 40 MG/10 ML VIAL INJ IV SCH (10:05)
[2021-07-20] MEDS: LINEZOLID 600MG/300ML 300 ML IV SCH (10:05)
[2021-07-20] MEDS ORDERED: FUROSEMIDE 20 MG/2 ML VIAL ONE (11:53)
[2021-07-20] MEDS ORDERED: FUROSEMIDE 20 MG/2 ML VIAL IV ONE (12:00)
[2021-07-20 12:03] LABS: Band Neutrophils % (manual) 5; Eosinophils % (manual) 3 (0-7); Lymphocytes % (manual) 7 (10.0-50.0); Monocytes % (manual) 5 (0-12)
[2021-07-20] MEDS ORDERED: TPN PER PHARMACY IV SCH ×6 (20:00)
== END 2021-07-20 13:39 | disposition short-term general hospital (02) | DRG 720 ==
LOC: ER 17:30 → EDBD 17:30 → TELE 06-27 02:10 → DOU IN ICU 06-27 05:52 → ICU CENTRL 06-29 05:18 → ICU WEST 07-01 07:55
PROVIDERS: ADMIT Nurse Practitioner; ATTEND Internal Medicine Pulmonary Disease
PROC: 5A09357 Assistance with Respiratory Ventilation, Less than 24 Consecutive Hours, Continuous Positive Airway Pressure (ICD-10-PCS; 2021-06-26)
PROC: 5A09357 Assistance with Respiratory Ventilation, Less than 24 Consecutive Hours, Continuous Positive Airway Pressure (ICD-10-PCS; 2021-06-27)
PROC: 5A1955Z Respiratory Ventilation, Greater than 96 Consecutive Hours (ICD-10-PCS; principal; 2021-06-28)
PROC: 0BH17EZ Insertion of Endotracheal Airway into Trachea, Via Natural or Artificial Opening (ICD-10-PCS; 2021-06-28)
PROC: 05H933Z Insertion of Infusion Device into Right Brachial Vein, Percutaneous Approach (ICD-10-PCS; 2021-06-28)
PROC: B54MZZA Ultrasonography of Right Upper Extremity Veins, Guidance (ICD-10-PCS; 2021-06-28)
PROC: 5A09357 Assistance with Respiratory Ventilation, Less than 24 Consecutive Hours, Continuous Positive Airway Pressure (ICD-10-PCS; 2021-06-28)
PROC: 0W9B30Z Drainage of Left Pleural Cavity with Drainage Device, Percutaneous Approach (ICD-10-PCS; 2021-06-29)
PROC: 0W9930Z Drainage of Right Pleural Cavity with Drainage Device, Percutaneous Approach (ICD-10-PCS; 2021-07-06)
PROC: 30233K1 Transfusion of Nonautologous Frozen Plasma into Peripheral Vein, Percutaneous Approach (ICD-10-PCS; 2021-07-16)
PROC: 30233N1 Transfusion of Nonautologous Red Blood Cells into Peripheral Vein, Percutaneous Approach (ICD-10-PCS; 2021-07-16)
PROC: 0W990ZZ Drainage of Right Pleural Cavity, Open Approach (ICD-10-PCS; 2021-07-18)
PROC: 0BBK0ZZ Excision of Right Lung, Open Approach (ICD-10-PCS; 2021-07-18)
DX: A41.9 Sepsis, unspecified organism (principal); J96.01 Acute respiratory failure with hypoxia; R65.21 Severe sepsis with septic shock; J69.0 Pneumonitis due to inhalation of food and vomit; J86.9 Pyothorax without fistula; E87.2 Acidosis; N17.9 Acute kidney failure, unspecified; B37.9 Candidiasis, unspecified; I20.9 Angina pectoris, unspecified; Z20.822 Contact with and (suspected) exposure to COVID-19; F15.10 Other stimulant abuse, uncomplicated; J44.0 Chronic obstructive pulmonary disease with (acute) lower respiratory infection; J44.1 Chronic obstructive pulmonary disease with (acute) exacerbation; E55.9 Vitamin D deficiency, unspecified; J90 Pleural effusion, not elsewhere classified; E87.0 Hyperosmolality and hypernatremia; E87.5 Hyperkalemia; E88.09 Other disorders of plasma-protein metabolism, not elsewhere classified; F12.10 Cannabis abuse, uncomplicated; J98.11 Atelectasis; E43 Unspecified severe protein-calorie malnutrition; D64.9 Anemia, unspecified; Z68.23 Body mass index [BMI] 23.0-23.9, adult
CPT/HCPCS: 36415; 36569; 36600; 70490; 70492; 71045; 71250; 71260; 71275; 74018; 74176; 76775; 76942; 80048; 80053; 80061; 80069; 80202; 80307; 81001; 82150; 82306; 82805; 82962; 83540; 83550; 83605; 83690; 83735; 83880; 83986; 84100; 84443; 84478; 84484; 85007; 85014; 85018; 85025; 85027; 85379; 85610; 85730; 86850; 86900; 86901; 86920; 87040; 87070; 87076; 87077; 87081; 87086; 87186; 87205; 89051; 93005; 93306; 93970; 93971; 94002; 94003; 94640; 94660; 96365; 96366; 96367; 96368; 96372; 96375; 96376; 99291; A4223; A4618; C1729; C9113; G0378; J0330; J0696; J1815; J2001; J2185; J2248; J2250; J2543; J2704; J3490; J7060; J7131